=== PATIENT | male | born 1965 | race Caucasian/White ===

== ENCOUNTER 2017-12-02 12:23 | Inpatient (IN) | payer BC ==
--- NOTE | 2017-12-02 12:29 | PDOC ---
History of Present Illness - General Chief Complaint: Nausea Stated Complaint: N/V/D, ABD PAIN, CHRONIC PAIN Time Seen by Provider: 12/02/17 12:29 History Source: Patient Exam Limitations: No Limitations - History of Present Illness Travel History: No Initial Comments: 12/02/17 13:06 Mr Ballard is a 52-year-old male with no significant past medical history who presents emergency department with a complaint of abdominal pain, vomiting, diarrhea. Patient states he has been ill for the past 2 weeks. Initially he noted vomiting and diarrhea. Diarrhea was nonbloody, nonmucoid, he estimates one episode daily. He also noted vomiting which was nonbloody, nonbilious, and has since resolved. He reports that 4 days into the vomiting and diarrhea he began to have abdominal pain. Pain is located on the right side the abdomen, described as 8D and sharp. No radiation. Pain is always present but worsens intermittently. It improves with changes in position. No associated fevers or chills. No ill contacts. No international travel. He's unsure if he's had undercooked meat or shellfish. No prior episodes like this. Currently he notes that he is dry heaving. PMH: Denies PSH: Surgical procedure as a 3-year-old child to remove a lump in intestine", reportedly not malignant. Left rotator cuff repair Meds: Ativan 1 mg 3 times a day, last use this morning Nifedipine Lexapro Vicodin 5 mg 3-4 times a day when necessary pain. ALL: NKDA Social: Denies IV drug use, currently smokes 1 pack per day, sober 2 years FH: Noncontributory GENERAL/CONSTITUTIONAL: No: fever, chills, weakness, loss of appetite. HEAD, EYES, EARS, NOSE AND THROAT: No: change in vision, ear pain, discharge, sore throat, throat swelling. CARDIOVASCULAR: No: chest pain, lightheadedness, palpitations, syncope RESPIRATORY: No: cough, shortness of breath, wheezing, hemoptysis, stridor. GASTROINTESTINAL: Yes: nausea, vomiting, diarrhea, abdominal pain GENITOURINARY: No: dysuria, hematuria, frequency, urgency, flank pain. MUSCULOSKELETAL: No: back pain, neck pain, joint pain, muscle swelling or pain SKIN AND BREASTS: No: lesions, pallor, rash or easy bruising. NEUROLOGIC: No: headache, vertigo, paresthesias, weakness ENDOCRINE: No: unexplained weight gain or loss HEMATOLOGIC/LYMPHATIC: No: anemia, easy bleeding, swelling nodes. GENERAL: The patient is in no acute distress. HEAD: Normal with no signs of trauma. EYES: PERRLA, EOMI, sclera anicteric, conjunctiva clear. ENT: Ears normal, nares patent, oropharynx clear without exudates. Moist mucous membranes. NECK: Normal range of motion, supple without lymphadenopathy, JVD, or masses. LUNGS: Breath sounds equal, clear to auscultation bilaterally. No wheezes, and no crackles. HEART:Regular rate and rhythm, normal S1 and S2 without murmur, rub or gallop. ABDOMEN: Soft, RLQ tenderness to palpation, no involuntary guarding, no rebound EXTREMITIES: Normal range of motion, no edema. NEUROLOGICAL: Cranial nerves II through XII grossly intact. Normal speech. No focal neurological deficits. MUSCULOSKELETAL: Back non-tender to palpation, no CVA tenderness SKIN: Warm, Dry, normal turgor, no rashes or lesions noted. Past History - Past Medical History Allergies/Adverse Reactions: Allergies Allergy/AdvReac Type Severity Reaction Status Date / Time No Known Allergies Allergy Verified 12/02/17 12:32 Home Medications: Ambulatory Orders Escitalopram Oxalate [Lexapro -] 50 mg PO DAILY 12/02/17 Hydrocodone/Acetaminophen [Vicodin 5-300 mg Tablet] 1 each PO QID PRN 12/02/17 LORazepam [Ativan] 1 mg PO TID 12/02/17 Nifedipine [Nifedipine ER] 60 mg PO DAILY 12/02/17 ED Treatment Course - LABORATORY CBC & Chemistry Diagram: 12/02/17 13:15 12/02/17 13:15 Medical Decision Making - Medical Decision Making 12/02/17 13:14 52-year-old male presents emergency department with a complaint of severe abdominal pain, persistent nausea, vomiting. Differential diagnosis includes but is not limited to: Gastritis, gastritis, colitis, appendicitis with abscess, small bowel junction. Also possible is opioid withdrawal. Will do: Labs CT UA Morphine, Zofran, fluids Re Assess 12/02/17 14:22 Laboratory Tests 12/02/17 12/02/17 13:15 13:15 WBC 8.4 Hgb 9.0 L Hct 27.5 L Plt Count 601 H Urine Ketones Trace Urine Nitrite Positive Urine Bilirubin 1+ H Ur Leukocyte Esterase Negative 12/02/17 14:29 Laboratory Tests 12/02/17 13:15 Sodium 133 L Potassium 3.8 Chloride 98 Carbon Dioxide 28 BUN 10 Creatinine 0.7 Random Glucose 122 H Total Bilirubin 0.5 AST 19 ALT 13 Albumin 2.7 L Total Amylase 22 L 12/02/17 18:28 CT with extensive inflammation around gallbladder, duodenum, colon. Patient hemodynamically stable currently in emergency department Case reviewed with Dr Gavin Requesting pt transfer Agrees with Wally NUNO pending Case reviewed with Dr. Clifton Will admit to hospitalist at [facility] Clinical impression: CHolecystitis, initial presentation *DC/Admit/Observation/Transfer Diagnosis at time of Disposition: Cholecystitis, Duodenitis - Discharge Dispostion Condition at time of disposition: Stable Decision to Admit order: Yes - Referrals - Patient Instructions - Post Discharge Activity
[2017-12-02] MEDS ORDERED: ONDANSETRON 4 MG/2 ML VIAL IVPUSH ONE ×3 (12:38→18:44)
[2017-12-02] MEDS ORDERED: SODIUM CHLORIDE 1,000 ML IV STA (12:38)
[2017-12-02] MEDS ORDERED: morphine CARPU-JECT 4 MG/1 ML DISP.SYRIN IVPUSH ONE (12:38)
[2017-12-02] MEDS ORDERED: morphine SULFATE 4 MG/ML VIAL ONE (13:09)
[2017-12-02] MEDS ORDERED: ONDANSETRON 4 MG/2 ML VIAL ONE ×3 (13:10→18:46)
[2017-12-02 13:55] LABS: BASO % 0.4 % (0-2.0); EOS % 0.8 % (0-4.5); HEMATOCRIT 27.5 % (35.4-49); LYMPH % 13.8 % (8-40); MCH 30.5 pg (25.7-33.7); MCHC 32.8 g/dl (32.0-35.9); MEAN CELL VOLUME 93.1 fl (80-96); MEAN PLT VOLUME 7.1 fl (7.5-11.1); MONO % 9.1 % (3.8-10.2); NEUT % 75.9 % (42.8-82.8); PLATELET COUNT 601 K/MM3 (134-434); RBC 2.96 M/mm3 (4.00-5.60); RDW 14.4 % (11.9-15.9); WHITE BLOOD COUNT 8.4 K/mm3 (4.0-10.8)
[2017-12-02 13:58] LABS: URINE APPEARANCE Clear; URINE BILIRUBIN 1+ (NEGATIVE); URINE GLUCOSE (UA) Trace (NEGATIVE); URINE KETONE Trace (NEGATIVE); URINE LEUK ESTERASE Negative (NEGATIVE); URINE NITRITE Positive (NEGATIVE)
[2017-12-02 14:09] LABS: URINE COLOR YELLOW; URINE PROTEIN 1+ (NEGATIVE)
[2017-12-02 14:22] LABS: ALBUMIN 2.7 g/dl (3.5-5.0); ALK PHOS 59 U/L (32-92); AMYLASE 22 U/L (25-125); ANION GAP 7 (8-16); BILIRUBIN,TOTAL 0.5 mg/dl (0.2-1.0); BLOOD UREA NITROGEN 10 mg/dl (7-18); CALCIUM 8.4 mg/dl (8.4-10.2); CHLORIDE 98 mmol/L (98-107); CO2 28 mmol/L (22-28); CREATININE 0.7 mg/dl (0.6-1.3); GLUCOSE,RANDOM 122 mg/dl (74-106); POTASSIUM 3.8 mmol/L (3.5-5.1); SGOT/AST 19 U/L (10-42); SGPT/ALT 13 U/L (10-40); SODIUM 133 mmol/L (136-145); TOT PROT 6.1 g/dl (6.4-8.3)
[2017-12-02 14:32] LABS: EPI CELLS 0-3 /HPF; URINE BACTERIA FEW /hpf (NEGATIVE); URINE MUCUS 2+; URINE RBC 0-3 /hpf (0-3)
[2017-12-02 14:47] LABS: PLATELET ESTIMATE INCREASED
[2017-12-02] MEDS ORDERED: HYDROmorphone HCL CARPU-JECT 2 MG/1 ML DISP.SYRIN ONE ×2 (15:05→18:45)
[2017-12-02] MEDS ORDERED: HYDROmorphone HCL CARPU-JECT 1 MG/1 ML DISP.SYRIN IVPB ONE ×2 (15:06→18:44)
[2017-12-02 16:08] LABS: LIPASE 87 U/L (73-393)
[2017-12-02] MEDS ORDERED: PIPERACILLIN/TAZOB 4.5 GM 4.5 GM in DEXTROSE 5%-WATER 100 ML IVPB ONE (17:25)
[2017-12-02] MEDS ORDERED: PIPERACILLIN/TAZOBACTAM 4.5 GM VIAL IVPB ONE (17:29)
[2017-12-02] MEDS: LACTATED RINGERS SOLUTION 1,000 ML/1,000 ML INFUS.BAG IV SCH ×2 (18:15→22:11)
[2017-12-02 18:53] LABS: INR 1.03 (0.82-1.09); PROTHROMBIN TIME (PATIENT) 11.5 SEC (10.2-13.0)
--- NOTE | 2017-12-02 19:57 | PN ---
Teaching Attending Note Name of Resident: Adin Vasquez ATTENDING PHYSICIAN STATEMENT I saw and evaluated the patient. I reviewed the resident's note and discussed the case with the resident. I agree with the resident's findings and plan as documented. SUBJECTIVE: Patient is a 52 year old man with medical history of tobacco use, hypertension, ?depression who was transferred to [place] from [facility] where he presented with a complaint of abdominal pain, vomiting, and diarrhea for 2 weeks. Diarrhea was about once daily and was dark, nonbloody and nonmucoid. Also vomitus was nonbloody and nonbilious. Pain is located on the right side the abdomen, sharp and non radiating. He denies fevers, chills, ill contacts, international travel or eating undercooked meat or shellfish. CT scan as well as Ultrasound at [facility] showed acalculous cholecystitis with mild dilatation of common bile duct on sonogram as well as mild duodenitis and colitis on CT scan. OBJECTIVE: Vital Signs Period Temp Pulse Resp BP Sys/Linn Pulse Ox Last 24 Hr 98.5 F-98.9 F 76-110 16-18 98-127/66-92 95-98 HEENT: No Jaundice, eye redness or discharge, PERRLA, EOMI. Normocephalic, atraumatic. External ears are normal and hearing is grossly intact. No nasal discharge. Neck: Supple, nontender. No palpable adenopathy or thyromegaly. No JVD Chest: Good effort. Clear to auscultation and percussion. Heart: Regular. No S3, rub or murmur Abdomen: Not distended, soft, nontender and no HSM. No rebound or guarding. Normoactive bowel sounds. Ext: Peripheral pulses intact. No leg edema. Skin: Warm and dry. No petechiae, rash or ecchymosis. Neuro: Alert. Oriented x3. CN 2-12 grossly intact. Sensation grossly intact in all four extremities and DTR are symmetric. Current Medications Generic Name Dose Route Start Last Admin Trade Name Freq PRN Reason Stop Dose Admin Lactated Ringer's 1,000 ml in 1,000 mls @ 125 mls/hr 12/02/17 18:00 12/02/17 18:15 Lactated Ringers Solution IV 125 mls/hr ASDIR ALEXIA Administration Home Medications Medication Instructions Recorded Escitalopram Oxalate [Lexapro -] 50 mg PO DAILY 12/02/17 Hydrocodone/Acetaminophen [Vicodin 1 each PO QID PRN 12/02/17 5-300 mg Tablet] LORazepam [Ativan] 1 mg PO TID 12/02/17 Nifedipine [Nifedipine ER] 60 mg PO DAILY 12/02/17 Abnormal Lab Results 12/02/17 12/02/17 12/02/17 13:15 13:15 13:15 RBC 2.96 L Hgb 9.0 L Hct 27.5 L Plt Count 601 H MPV 7.1 L Sodium 133 L Anion Gap 7 L Random Glucose 122 H Total Protein 6.1 L Albumin 2.7 L Total Amylase 22 L Urine Protein 1+ H Urine Bilirubin 1+ H ASSESSMENT AND PLAN: 1. Acute acalculous cholecystitis - Findings confirmed by CT scan. Of note is associated mild duodenitis and acute colitis. Will keep him NPO, continue IV Zosyn 3.375 gm IV q 8 hours in view of the associated colitis, IV LR at 125 ml/ hr and consult Dr. Roach for ID as per the surgeon. If he has any more diarrhea , will send stool for analyses including C. Diff toxin. 2. Thrombocytosis - Most likely reactive due to an active infection, or may signal iron deficiency. Will monitor closely and investigate it if it fails to resolve with treatment of cholecystitis. 3. Anemia - Concerning for GI blood loss of unclear cause. Will do basic anemia work up including serial stool guaiacs, reticulocyte count and iron studies. Would consult GI for possible colonoscopy when he is stable. 4. Opioid dependence - Will verify his dose on iStop and continue PRN. Monitor for withdrawal. 5. Hypoalbuminemia - Possibly due to combined effects of malnutrition and inflammation associated with comorbid conditions. Will ensure adequate dietary protein intake and also consult humanities and languages professor. 6. Tobacco Use We will provide patient all the necessary assistance to facilitate smoking cessation and prescribe Nicotine patch. 7. DVT prophylaxis - Heparin 5000u sq tid. 8. Advance directives - Full code
--- NOTE | 2017-12-02 20:12 | CON.ID ---
Consult - Alcohol/Substance Use Hx Alcohol Use: Yes - Smoking History Smoking history: Current every day smoker Have you smoked in the past 12 months: Yes Aproximately how many cigarettes per day: 20 Home Medications - Allergies Allergies/Adverse Reactions: Allergies Allergy/AdvReac Type Severity Reaction Status Date / Time No Known Allergies Allergy Verified 12/02/17 12:32 - Home Medications Home Medications: Ambulatory Orders Escitalopram Oxalate [Lexapro -] 50 mg PO DAILY 12/02/17 Hydrocodone/Acetaminophen [Vicodin 5-300 mg Tablet] 1 each PO QID PRN 12/02/17 LORazepam [Ativan] 1 mg PO TID 12/02/17 Nifedipine [Nifedipine ER] 60 mg PO DAILY 12/02/17 Physical Exam Vital Signs: Vital Signs Temperature 98.5 F 12/02/17 19:51 Pulse Rate 78 12/02/17 19:51 Respiratory Rate 17 12/02/17 19:51 Blood Pressure 112/70 12/02/17 19:51 O2 Sat by Pulse Oximetry (%) 95 12/02/17 18:15 Labs: CBC, BMP 12/02/17 13:15 12/02/17 13:15
[2017-12-02] MEDS ORDERED: morphine CARPU-JECT 2 MG/1 ML DISP.SYRIN IVPUSH PRN (21:04)
[2017-12-02] MEDS: MORPHINE SULFATE 2 MG/ML VIAL IVPUSH PRN (22:22)
[2017-12-02] MEDS: ONDANSETRON 4 MG/2 ML VIAL IVPUSH PRN (23:20)
--- NOTE | 2017-12-02 23:26 | CONSULT ---
Consult Consult Specialty:: General Surgery Referred by:: Rebekah Sorto Reason for Consultation:: acute acalculous cholecystitis with associated intestinal inflammation - History of Present Illness Chief Complaint: abdominal pain, n/v, anorexia History of Present Illness: 52yo M smoker and former drinker with HTN, anxiety/depression, shoulder and knee problems, presented to [facility] with 2 wks of not feeling well, which began with "sludge" diarrhea and N/V attributed to "something going around." He did not initially have abdominal pain, but did lose his appetite, and tolerated mainly Gatorade and liquids but was still able to eat lightly as the week went on. Then this last week, the diarrhea resolved into formed stools , and slowly he was able to eat a little, but epigastric and RUQ pain began about 6 days ago, and have continued to get worse. He thought at first his retching was the source of RUQ pain (?cracked rib). Urine was dark for a while at first, but has been network systems operator throughout the course of his illness. There were a couple days he felt feverish last week, but was also out in the sun a lot and could have been dehydrated. He came to the ER, where his wbc is 10, LFTs and lipase are normal, he was afebrile, and CT showed marked inflammatory changes around the gallbladder, duodenum and nearby colon, with edema/fluid and thickened osuna. US confirmed likely acalculous cholecystitis, with no apparent stones, thick-walled gallbladder and pericholecystic fluid. Surgery was asked to evaluate, and the patient was requested to be transferred to [facility] [place] given the severity of inflammation and likelihood of needing surgery. Pt is seen and examined in bed on the med/surg floor, with the hospitalist residents and med student. He has gotten IVF and Zosyn, pain medicines and Zofran. He states this is the first night he felt like he could have eaten, but has continued to have pain in the epigastric and RUQ areas, along with some nausea. He denies ever having colonoscopy. He will accept a nicotine patch as a heavy smoker. - History Source History Provided By: Patient Limitations to Obtaining History: No Limitations - Past Medical History Cardio/Vascular: Yes: HTN Pulmonary: Yes: Other ("wheezing" (from smoking)) Psych: Yes: Anxiety, Depression Musculoskeletal: Yes: Osteoarthritis (knee), Other (chronic shoulder problems, h /o ankle injuries) - Past Surgical History Past Surgical History: No: Colonoscopy (never) Additional Surgical History: RLQ surgery as 3yo for "blockage" - unclear if had appendectomy, was benign; L rotator cuff repair, (needs right done) - Alcohol/Substance Use Hx Alcohol Use: Yes (heavy drinker for 8 yrs, quit 2 yrs ago) History of Substance Use: reports: Cocaine (in the 1980s, snorted - not since), Prescription (vicodin 5/325 at least daily to tid for shoulder/knee pain ( mostly at night)) - Smoking History Smoking history: Current every day smoker Have you smoked in the past 12 months: Yes Aproximately how many cigarettes per day: 20 (1ppd x 35 yrs, less in last 2 wks) - Social History ADL: Independent Home Medications - Allergies Allergies/Adverse Reactions: Allergies Allergy/AdvReac Type Severity Reaction Status Date / Time No Known Allergies Allergy Verified 12/02/17 12:32 - Home Medications Home Medications: Ambulatory Orders Escitalopram Oxalate [Lexapro -] 50 mg PO DAILY 12/02/17 Hydrocodone/Acetaminophen [Vicodin 5-300 mg Tablet] 1 each PO QID PRN 12/02/17 LORazepam [Ativan] 1 mg PO TID 12/02/17 Nifedipine [Nifedipine ER] 60 mg PO DAILY 12/02/17 Home Medications (free text): also uses trazodone for sleep Family Disease History - Family Disease History Family Disease History: Other: Father ( of EtOH cirrhosis), Brother ( of EtOH cirrhosis) Review of Systems - Review of Systems Constitutional: reports: Fever (for couple days few days ago), Loss of Appetite (coming back recently). denies: Chills Eyes: denies: Blurred Vision, Recent Change in Vision HENT: denies: Difficult Swallowing, Nasal Congestion, Throat Pain Neck: denies: Swollen Glands, Tenderness Cardiovascular: denies: Chest Pain, Palpitations Respiratory: reports: Wheezing ("for a long time"). denies: Cough, SOB Gastrointestinal: reports: Abdominal Pain (last 6 days with hpi), Diarrhea ( initially 2 wks ago, resolved to formed stool), Nausea, Vomiting Genitourinary: denies: Burning, Dysuria Musculoskeletal: reports: Joint Pain (right shoulder and knee). denies: Back Pain Integumentary: denies: Change in Color, Rash Psychiatric: reports: Altered Sleep Pattern (uses trazodone for sleep), Anxiety , Depression Physical Exam Vital Signs: Vital Signs Temperature 97.7 F 12/02/17 21:10 Pulse Rate 79 12/02/17 21:10 Respiratory Rate 18 12/02/17 21:10 Blood Pressure 119/71 12/02/17 21:10 O2 Sat by Pulse Oximetry (%) 96 12/02/17 21:10 Constitutional: Yes: Well Nourished, No Distress, Calm Eyes: Yes: Conjunctiva Clear, EOM Intact. No: Sclera Icterus HENT: Yes: Atraumatic, Normocephalic Neck: Yes: Supple, Trachea Midline Cardiovascular: Yes: Regular Rate and Rhythm. No: Murmur Respiratory: Yes: Regular, Wheezes (insp/exp bilaterally - clears some with coughing, but cough is with wheezing). No: SOB Gastrointestinal: Yes: Normal Bowel Sounds, Soft, Hernia (small reducible umbilical), Tenderness (RUQ, less epigastric, less RLQ, no rebound or guarding) , Other (well-healed short RLQ scar). No: Distention ...Rectal Exam: Yes: Deferred Renal/: Yes: CVA Tenderness - Right (mild). No: CVA Tenderness - Left Musculoskeletal: Yes: Joint Stiffness (R shoulder). No: Joint Swelling Extremities: No: Cool, Cyanosis Edema: No Peripheral Pulses WNL: Yes Integumentary: Yes: Tattoos. No: Jaundice, Rash Neurological: Yes: Alert, Oriented Psychiatric: Yes: Alert, Oriented Labs: CBC, BMP 12/02/17 13:15 12/02/17 13:15 CMP Sodium 133 mmol/L (136-145) L 12/02/17 13:15 Potassium 3.8 mmol/L (3.5-5.1) 12/02/17 13:15 Chloride 98 mmol/L (98-107) 12/02/17 13:15 Carbon Dioxide 28 mmol/L (22-28) 12/02/17 13:15 Anion Gap 7 (8-16) L 12/02/17 13:15 BUN 10 mg/dl (7-18) 12/02/17 13:15 Creatinine 0.7 mg/dl (0.6-1.3) 12/02/17 13:15 Creat Clearance w eGFR > 60 (>60) 12/02/17 13:15 Random Glucose 122 mg/dl (74-106) H 12/02/17 13:15 Lactic Acid 0.9 mmol/L (0.0-2.0) 12/02/17 18:00 Calcium 8.4 mg/dl (8.4-10.2) 12/02/17 13:15 Total Bilirubin 0.5 mg/dl (0.2-1.0) 12/02/17 13:15 AST 19 U/L (10-42) 12/02/17 13:15 ALT 13 U/L (10-40) 12/02/17 13:15 Alkaline Phosphatase 59 U/L (32-92) 12/02/17 13:15 Total Protein 6.1 g/dl (6.4-8.3) L 12/02/17 13:15 Albumin 2.7 g/dl (3.5-5.0) L 12/02/17 13:15 Total Amylase 22 U/L (25-125) L 12/02/17 13:15 Lipase 87 U/L (73-393) 12/02/17 13:15 INR, PTT INR 1.03 (0.82-1.09) 12/02/17 18:00 Urine Test Results Urine Color Yellow 12/02/17 13:15 Urine Appearance Clear 12/02/17 13:15 Urine pH 6.0 (4.5-8) 12/02/17 13:15 Ur Specific [place] 1.015 (1.005-1.025) 12/02/17 13:15 Urine Protein 1+ (NEGATIVE) H 12/02/17 13:15 Urine Glucose (UA) Trace (NEGATIVE) 12/02/17 13:15 Urine Ketones Trace (NEGATIVE) 12/02/17 13:15 Urine Blood Negative (NEGATIVE) 12/02/17 13:15 Urine Nitrite Positive (NEGATIVE) 12/02/17 13:15 Urine Bilirubin 1+ (NEGATIVE) H 12/02/17 13:15 Ur Leukocyte Esterase Negative (NEGATIVE) 12/02/17 13:15 Urine RBC 0-3 /hpf (0-3) 12/02/17 13:15 Urine WBC 3-5 (0-2) 12/02/17 13:15 Ur Epithelial Cells 0-3 /HPF 12/02/17 13:15 Urine Bacteria Few /hpf (NEGATIVE) 12/02/17 13:15 Urine Mucus 2+ 12/02/17 13:15 Imaging - Results Cat Scan: Report Reviewed, Image Reviewed (images personally reviewed - gallbladder with significant wall thickening, surrounding fluid, adjacent inflammation of duodenum and colon, appendix not visualized, possible SB/Meckel' s? diverticulum noted in RLQ, no intestinal obstruction, no free air) Ultrasound: Report Reviewed, Image Reviewed (no apparent gallstones, thickened gallbladder wall with pericholecystic fluid, cbd mildly enlarged at 7.5mm) EKG: Report Reviewed (no QT prolongation) Problem List - Problems (1) Acute acalculous cholecystitis Assessment/Plan: transferred from [facility] to [facility] to hospitalist service NPO/IVF - essential po meds ok to continue/use pain meds prn - would use IV Tylenol and prn hydrocodone first line, then IV morphine prn trend labs GI/DVT prophylaxis agree with antibiotics, Zosyn, ID to continue discussed with patient laparoscopic possible open cholecystectomy with diagnostic laparoscopy component he prefers to discuss R/B/A in detail tomorrow anticipate pt will need cholecystectomy this admission, but will follow up labs and exam in am seen, examined and discussed with hospitalist team at bedside - Drs. So and colleagues Code(s): K81.0 - ACUTE CHOLECYSTITIS (2) Acute duodenitis Assessment/Plan: secondary to biliary inflammation? Code(s): K29.80 - DUODENITIS WITHOUT BLEEDING (3) RUQ pain Code(s): R10.11 - RIGHT UPPER QUADRANT PAIN (4) Epigastric pain Code(s): R10.13 - EPIGASTRIC PAIN (5) Nausea and vomiting Assessment/Plan: zofran prn NPO/IVF Code(s): R11.2 - NAUSEA WITH VOMITING, UNSPECIFIED Qualifiers: Vomiting type: unspecified Vomiting Intractability: non-intractable Qualified Code(s): R11.2 - Nausea with vomiting, unspecified (6) Diarrhea Assessment/Plan: resolved from last week Code(s): R19.7 - DIARRHEA, UNSPECIFIED Qualifiers: Diarrhea type: unspecified type Qualified Code(s): R19.7 - Diarrhea, unspecified
--- NOTE | 2017-12-02 23:53 | HP ---
CHIEF COMPLAINT: abdominal pain, vomiting, diarrhea PCP: HISTORY OF PRESENT ILLNESS: 52 y/o M w/ PMH of HTN, anxiety, and depression, p/w abdominal pain, vomiting, diarrhea. Patient states he has been ill for the past 2 weeks. Initially he noted nausea, vomiting, and diarrhea that he describes as "black sludge", he estimates one episode daily. He reports not taking anything for it and had decreased appetite, tolerated Gatorade and mild food. He also noted vomiting which was nonbloody, nonbilious, and has since resolved. He reports that 4 days into the vomiting and diarrhea he began to have abdominal pain along with dry heaving. Pain began in epigastrium and eventually migrated to the upper right side the abdomen, near the ribs, described as 9/10 and sharp. No radiation. Pain is always present but worsens intermittently. It improves with changes in position. No associated fevers, chills, SOB, CP, palpitations, dysuria, ill contacts, international travel. He's unsure if he's had undercooked meat or shellfish. No prior episodes like this. ER course was notable for: (1)Zosyn 4.5mg q8h, morphine 2mg IVP q4h PRN, Dilauded 1mg IVP (2) (3) Recent Travel: none PAST MEDICAL HISTORY: HTN anxiety depression b/l rotator cuff tear R torn meniscus PAST SURGICAL HISTORY: 49 yr old surgical scar in RLQ, pt said his mother told him it was from a "blockage" Social History: Smokinpack/day for 35yrs Alcohol:stopped 2 years ago after 8 years of heavy drinking Drugs: cocaine in the 80's. denies current or recent use Family History: dad had cirrhosis Allergies No Known Allergies Allergy (Verified 12/02/17 12:32) HOME MEDICATIONS: Home Medications Medication Instructions Recorded Escitalopram Oxalate [Lexapro -] 50 mg PO DAILY 12/02/17 Hydrocodone/Acetaminophen [Vicodin 1 each PO QID PRN 12/02/17 5-300 mg Tablet] LORazepam [Ativan] 1 mg PO TID 12/02/17 Nifedipine [Nifedipine ER] 60 mg PO DAILY 12/02/17 Trazadone 100mg qhs for sleep REVIEW OF SYSTEMS CONSTITUTIONAL: + loss of appetite Absent: fever, chills, diaphoresis, generalized weakness, malaise, weight change HEENT: Absent: rhinorrhea, nasal congestion, throat pain, throat swelling, difficulty swallowing, mouth swelling, ear pain, eye pain, visual changes CARDIOVASCULAR: Absent: chest pain, syncope, palpitations, irregular heart rate, lightheadedness , peripheral edema RESPIRATORY: +wheezing Absent: cough, shortness of breath, dyspnea with exertion, orthopnea, stridor, hemoptysis GASTROINTESTINAL: +abdominal pain, n/v/d, melena Absent:abdominal distension, constipation, hematochezia GENITOURINARY: Absent: dysuria, frequency, urgency, hesitancy, hematuria, flank pain, genital pain MUSCULOSKELETAL: Absent: myalgia, arthralgia, joint swelling, back pain, neck pain SKIN: Absent: rash, itching, pallor HEMATOLOGIC/IMMUNOLOGIC: Absent: easy bleeding, easy bruising, lymphadenopathy, frequent infections ENDOCRINE: Absent: unexplained weight gain, unexplained weight loss, heat intolerance, cold intolerance NEUROLOGIC: Absent: headache, focal weakness or paresthesias, dizziness, unsteady gait, seizure, mental status changes, bladder or bowel incontinence PSYCHIATRIC: Absent:anxiety, depression, suicidal or homicidal ideation, hallucinations. PHYSICAL EXAMINATION Vital Signs - 24 hr 12/02/17 12/02/17 12/02/17 12:27 15:00 18:15 Temperature 98.9 F 98.9 F Pulse Rate 110 H Pulse Rate [ 90 76 Right Radial] Respiratory 18 17 16 Rate Blood Pressure 127/92 Blood Pressure 102/71 98/66 [Left Arm] O2 Sat by Pulse 98 96 95 Oximetry (%) 12/02/17 12/02/17 12/02/17 19:23 19:51 20:30 Temperature 98.5 F 98.5 F 97.7 F Pulse Rate 78 78 79 Pulse Rate [ Right Radial] Respiratory 17 17 18 Rate Blood Pressure 112/70 112/70 119/71 Blood Pressure [Left Arm] O2 Sat by Pulse Oximetry (%) 12/02/17 21:10 Temperature 97.7 F Pulse Rate 79 Pulse Rate [ Right Radial] Respiratory 18 Rate Blood Pressure 119/71 Blood Pressure [Left Arm] O2 Sat by Pulse 96 Oximetry (%) GENERAL: Awake, alert, and fully oriented, in mild distress. HEAD: Normal with no signs of trauma. EYES: sclera anicteric, conjunctiva clear. No lid lag. LUNGS: Breath sounds equal, clear to auscultation bilaterally. mild wheezes, but no crackles. No accessory muscle use. HEART: Regular rate and rhythm, normal S1 and S2 without murmur, rub or gallop. ABDOMEN: TTP RUQ Soft, not distended, normoactive bowel sounds, no rebound, no masses. No hepatomegaly MUSCULOSKELETAL: Normal range of motion at all joints. No bony deformities or tenderness. No CVA tenderness. UPPER EXTREMITIES: 2+ pulses, warm, well-perfused. No cyanosis. No clubbing. No peripheral edema. LOWER EXTREMITIES: 2+ pulses, warm, well-perfused. No calf tenderness. No peripheral edema. NEUROLOGICAL: Cranial nerves II-XII intact. Normal speech. PSYCHIATRIC: Cooperative. Good eye contact. Appropriate mood and affect. SKIN: Warm, dry, normal turgor, no rashes or lesions noted, normal capillary refill. Laboratory Results - last 24 hr 12/02/17 12/02/17 12/02/17 13:15 13:15 13:15 WBC 8.4 RBC 2.96 L Hgb 9.0 L Hct 27.5 L MCV 93.1 MCH 30.5 MCHC 32.8 RDW 14.4 Plt Count 601 H MPV 7.1 L Absolute Neuts (auto) 6.3 Neutrophils % 75.9 Lymphocytes % 13.8 Monocytes % 9.1 Eosinophils % 0.8 Basophils % 0.4 Platelet Estimate Increased Platelet Comment Few large platelets PT with INR INR Sodium 133 L Potassium 3.8 Chloride 98 Carbon Dioxide 28 Anion Gap 7 L BUN 10 Creatinine 0.7 Creat Clearance w eGFR > 60 Random Glucose 122 H Lactic Acid Calcium 8.4 Total Bilirubin 0.5 AST 19 ALT 13 Alkaline Phosphatase 59 Total Protein 6.1 L Albumin 2.7 L Total Amylase 22 L Lipase 87 Urine Color Yellow Urine Appearance Clear Urine pH 6.0 Ur Specific [place] 1.015 Urine Protein 1+ H Urine Glucose (UA) Trace Urine Ketones Trace Urine Blood Negative Urine Nitrite Positive Urine Bilirubin 1+ H Urine Urobilinogen 1.0 Ur Leukocyte Esterase Negative Urine RBC 0-3 Urine WBC 3-5 Ur Epithelial Cells 0-3 Urine Bacteria Few Urine Mucus 2+ Blood Type Antibody Screen 12/02/17 12/02/17 12/02/17 18:00 18:00 18:00 WBC RBC Hgb Hct MCV MCH MCHC RDW Plt Count MPV Absolute Neuts (auto) Neutrophils % Lymphocytes % Monocytes % Eosinophils % Basophils % Platelet Estimate Platelet Comment PT with INR 11.5 INR 1.03 Sodium Potassium Chloride Carbon Dioxide Anion Gap BUN Creatinine Creat Clearance w eGFR Random Glucose Lactic Acid 0.9 Calcium Total Bilirubin AST ALT Alkaline Phosphatase Total Protein Albumin Total Amylase Lipase Urine Color Urine Appearance Urine pH Ur Specific [place] Urine Protein Urine Glucose (UA) Urine Ketones Urine Blood Urine Nitrite Urine Bilirubin Urine Urobilinogen Ur Leukocyte Esterase Urine RBC Urine WBC Ur Epithelial Cells Urine Bacteria Urine Mucus Blood Type O POSITIVE Antibody Screen Negative 12/02/17 18:10 WBC RBC Hgb Hct MCV MCH MCHC RDW Plt Count MPV Absolute Neuts (auto) Neutrophils % Lymphocytes % Monocytes % Eosinophils % Basophils % Platelet Estimate Platelet Comment PT with INR INR Sodium Potassium Chloride Carbon Dioxide Anion Gap BUN Creatinine Creat Clearance w eGFR Random Glucose Lactic Acid Calcium Total Bilirubin AST ALT Alkaline Phosphatase Total Protein Albumin Total Amylase Lipase Urine Color Urine Appearance Urine pH Ur Specific [place] Urine Protein Urine Glucose (UA) Urine Ketones Urine Blood Urine Nitrite Urine Bilirubin Urine Urobilinogen Ur Leukocyte Esterase Urine RBC Urine WBC Ur Epithelial Cells Urine Bacteria Urine Mucus Blood Type O POSITIVE Antibody Screen UA - positive nitrites. neg. leukocyte esterase. 1+protein 1+bilirubin Ucx - pending US - distended gallbladder w/ diffuse thickening and edema of wall suggestive of acute acalculous amber. mild dilation CBD 7.5mm in AP diam A/P CT - contracted gallbladder w/ likely acute amber, free pericholecystic fluid w/ inflammatory changes extending to descending portion of duodenum. Duodenitis and acute colitis cannot be excluded ASSESSMENT/PLAN: 52 y/o M w/ PMH of HTN, anxiety, and depression, p/w abdominal pain, vomiting, diarrhea 2/2 acute acalculous cholecystitis as seen on US and A/P CT imaging. #Acute acalculous cholecystitis - Findings confirmed by CT scan, associated mild duodenitis and acute colitis, may go for surgery tomorrow. -NPO except meds -Surgery consult -Zofran 4mg IV for nausea -albuterol neb tx q4h for preop -CBC w/ diff, CMP, PT/PTT, Amylase, lipase and CXR for anticipated preop -ID consulted, Zosyn 4.5mg q8h for associated colitis -If diarrhea persists, will send stool for analyses including C. Diff toxin. -pain control w/ IV tylenol 1g q6h pain score 4-10. if pain persists, 2mg morphine IVP q4h prn pain score 7-10 #Thrombocytosis - Most likely reactive due to an active infection. -monitor and investigate it if it fails to resolve with treatment of cholecystitis. #Anemia - Hbg of 9 in setting of dark stools, Concerning for GI blood loss of unclear cause or possible bone marrow suppression -w/u of stool guaiacs, reticulocyte count and iron studies -GI consult for possible colonoscopy #Hypoalbuminemia - Possibly due to combined effects of malnutrition and inflammation associated with comorbid conditions -ensure adequate dietary protein intake and also consult shoulder sawyer. #Tobacco -nicotine patch 7mg #HTN -c/w nifedipine home meds for HTN #anxiety and depression -c/w ativan home meds -c/w lexapro home meds #insomnia -Trazadone 100mg qhs for sleep #FEN ppx -LR IV for fluid resuscitation -repelte lytes if necessary -SQH 5000u #Dispo -admit to [facility] -may go for surgery in morning/afternoon -Full code Visit type - Emergency Visit Emergency Visit: Yes ED Registration Date: 12/02/17 Care time: The patient presented to the Emergency Department on the above date and was hospitalized for further evaluation of their emergent condition. - New Patient This patient is new to me today: Yes Date on this admission: 12/03/17 - Critical Care Critical Care patient: No Hospitalist Screening - Colonoscopy Questionnaire Colonoscopy Questionnaire: Colonoscopy Questionnaire - Patient: 50 - 75 years old and never had a screening colonoscopy: Yes History of colon or rectal polyps, or CA: Unknown History of IBD, Crohn's disease or UC: Unknown History of abdominal radiation therapy as a child: Unknown - Relative: 1 with colon or rectal CA, or polyps at age 60 or younger: Unknown Colon or rectal CA diagnosed at age 45 or younger: Unknown Multiple relatives with colon or rectal CA: Unknown - Outcome: Screening Result: Positive Screen
[2017-12-02] MEDS ORDERED: traZODone HCL 50 MG TABLET (FP) PO ONE (23:54)
[2017-12-02] MEDS ORDERED: ACETAMINOPHEN 1000 MG/100 ML VIAL (NON FORMULARY) IVPB PRN (23:56)
[2017-12-03] MEDS ORDERED: DEXTROSE 5%-WATER 100 ML IVPB ONE ×4 (00:02→23:36)
[2017-12-03] MEDS ORDERED: PIPERACILLIN/TAZOBACTAM 4.5 GM VIAL IVPB ONE ×4 (00:02→23:36)
[2017-12-03] MEDS: PIPERACILLIN/TAZOB 4.5 GM 4.5 GM in DEXTROSE 5%-WATER 100 ML IVPB SCH ×3 (01:30→18:14)
[2017-12-03] MEDS ORDERED: ALBUTEROL SO4 0.5 % INH SOLN 2.5 MG/0.5 ML VIAL.NEB. NEB PRN (02:11)
[2017-12-03] MEDS: HEPARIN NA (PORCINE) 5,000 UNITS/ML 1ML VIAL SQ SCH ×3 (05:22→21:09)
[2017-12-03] MEDS: MORPHINE SULFATE 2 MG/ML VIAL IVPUSH PRN ×4 (05:28→19:29)
[2017-12-03] MEDS: LACTATED RINGERS SOLUTION 1,000 ML/1,000 ML INFUS.BAG IV SCH ×2 (06:42→19:35)
[2017-12-03 07:32] LABS: BASO % 0.5 % (0-2.0); EOS % 2.1 % (0-4.5); HEMATOCRIT 24.6 % (35.4-49); HEMOGLOBIN 8.1 GM/dL (11.7-16.9); LYMPH % 14.1 % (8-40); MCH 31.2 pg (25.7-33.7); MCHC 33.2 g/dl (32.0-35.9); MEAN CELL VOLUME 94.1 fl (80-96); MEAN PLT VOLUME 7.2 fl (7.5-11.1); MONO % 10.2 % (3.8-10.2); NEUT % 73.1 % (42.8-82.8); PLATELET COUNT 457 K/MM3 (134-434); RBC 2.61 M/mm3 (4.00-5.60)
[2017-12-03 07:41] LABS: INR 1.05 (0.82-1.09); PROTHROMBIN TIME (PATIENT) 11.9 SEC (9.7-13.0)
[2017-12-03 07:52] LABS: ALBUMIN 2.2 g/dl (3.4-5.0); ANION GAP 9 (8-16); BLOOD UREA NITROGEN 4 mg/dL (7-18); CALCIUM 8.2 mg/dL (8.5-10.1); CHLORIDE 100 mmol/L (98-107); CO2 30 mmol/L (21-32); CREATININE 0.6 mg/dL (0.7-1.3); GLUCOSE,RANDOM 82 mg/dL (74-106); LIPASE 57 U/L (73-393); POTASSIUM 4.1 mmol/L (3.5-5.1); SGPT/ALT 17 U/L (12-78); SODIUM 139 mmol/L (136-145)
[2017-12-03 08:22] LABS: ALK PHOS 70 U/L (45-117); BILIRUBIN,TOTAL 0.4 mg/dL (0.2-1.0); SGOT/AST 17 U/L (15-37); TOT PROT 5.7 g/dl (6.4-8.2)
[2017-12-03] MEDS ORDERED: PT OWN MED DRAWER 7, Y5N ONE (09:13)
--- NOTE | 2017-12-03 09:16 | CON.ID ---
Consult Consult Specialty:: infectious diseases Referred by:: Reason for Consultation:: abd pain,suspicion for choleycystitis - History of Present Illness Chief Complaint: abd pain History of Present Illness: 52yo M smoker and drinker with pmhx of HTN, anxiety/depression, shoulder and knee problems, admitted with 2 wks of not feeling well, patient starting having abd pain and started loosing his appetitie after which he started taking liquids abd pain in the last week started becoming worse and the patient came to the hospital patient was worked up in the ER with u/s and then ct scan . US confirmed likely acalculous cholecystitis, with no apparent stones, thick-walled gallbladder and pericholecystic fluid. ct scan showed a different finding and surgical team discussed the radiological findings with radiologist and the thought process was that there was sealed duodenal perf with very thickened gall bladder patient is also being followed by surgery currently patient feels very nauseous but has not thrown up abd pain better but denies any fevers - History Source History Provided By: Patient Limitations to Obtaining History: No Limitations - Past Medical History Cardio/Vascular: Yes: HTN Pulmonary: Yes: Other ("wheezing" (from smoking)) Psych: Yes: Anxiety, Depression Musculoskeletal: Yes: Osteoarthritis (knee), Other (chronic shoulder problems, h /o ankle injuries) - Past Surgical History Past Surgical History: No: Colonoscopy (never) Additional Surgical History: RLQ surgery as 3yo for "blockage" - unclear if had appendectomy, was benign; L rotator cuff repair, (needs right done) - Alcohol/Substance Use Hx Alcohol Use: Yes (heavy drinker for 8 yrs, quit 2 yrs ago) History of Substance Use: reports: Cocaine (in the 1980s, snorted - not since), Prescription (vicodin 5/325 at least daily to tid for shoulder/knee pain ( mostly at night)) - Smoking History Smoking history: Current every day smoker Have you smoked in the past 12 months: Yes Aproximately how many cigarettes per day: 20 (1ppd x 35 yrs, less in last 2 wks) - Social History ADL: Independent Home Medications - Allergies Allergies/Adverse Reactions: Allergies Allergy/AdvReac Type Severity Reaction Status Date / Time No Known Allergies Allergy Verified 12/02/17 12:32 - Home Medications Home Medications: Ambulatory Orders Escitalopram Oxalate [Lexapro -] 50 mg PO DAILY 12/02/17 Hydrocodone/Acetaminophen [Vicodin 5-300 mg Tablet] 1 each PO QID PRN 12/02/17 LORazepam [Ativan] 1 mg PO TID 12/02/17 Nifedipine [Nifedipine ER] 60 mg PO DAILY 12/02/17 Family Disease History - Family Disease History Family Disease History: Other: Father ( of EtOH cirrhosis), Brother ( of EtOH cirrhosis) Review of Systems - Review of Systems Constitutional: reports: No Symptoms Eyes: reports: No Symptoms HENT: reports: No Symptoms Neck: reports: No Symptoms Cardiovascular: reports: No Symptoms Respiratory: reports: No Symptoms Gastrointestinal: reports: Abdominal Pain, Nausea Genitourinary: reports: No Symptoms Musculoskeletal: reports: No Symptoms Integumentary: reports: No Symptoms Neurological: reports: No Symptoms Endocrine: reports: No Symptoms Hematology/Lymphatic: reports: No Symptoms Psychiatric: reports: No Symptoms Physical Exam Vital Signs: Vital Signs Temperature 98.6 F 12/03/17 06:00 Pulse Rate 89 12/03/17 06:00 Respiratory Rate 18 12/03/17 06:00 Blood Pressure 107/68 12/03/17 06:00 O2 Sat by Pulse Oximetry (%) 96 12/02/17 21:10 Constitutional: Yes: Calm, Mild Distress, Thin Eyes: Yes: Conjunctiva Clear HENT: Yes: Atraumatic, Normocephalic Neck: Yes: Supple, Trachea Midline Cardiovascular: Yes: Regular Rate and Rhythm Respiratory: Yes: Regular, CTA Bilaterally Gastrointestinal: Yes: Soft, Hypoactive Bowel Sounds, Tenderness (rt sided of abd) Musculoskeletal: Yes: WNL Extremities: Yes: WNL Neurological: Yes: Alert, Oriented Psychiatric: Yes: Alert, Oriented Labs: CBC, BMP 12/03/17 05:50 12/03/17 05:50 Imaging - Results Chest X-ray: Report Reviewed, Image Reviewed Cat Scan: Report Reviewed, Image Reviewed Ultrasound: Report Reviewed, Image Reviewed Assessment/Plan after looking at the imaging and discussing the case the thought process is that there is a sealed deuodenal perf and gall bladder pathology is secondary Problem List - Problems (1) Duodenal ulcer with perforation but without obstruction Code(s): K26.5 - CHRONIC OR UNSPECIFIED DUODENAL ULCER WITH PERFORATION (2) Anxiety Code(s): F41.9 - ANXIETY DISORDER, UNSPECIFIED (3) Epigastric abdominal pain Code(s): R10.13 - EPIGASTRIC PAIN (4) HTN (hypertension) Code(s): I10 - ESSENTIAL (PRIMARY) HYPERTENSION (5) Tobacco dependence due to cigarettes Code(s): F17.210 - NICOTINE DEPENDENCE, CIGARETTES, UNCOMPLICATED plan will start patient on zosyn iv fluids as per surgery patient will need close follow and a plan will need to be made
[2017-12-03] MEDS: ONDANSETRON 4 MG/2 ML VIAL IVPUSH PRN ×2 (09:21→13:58)
[2017-12-03] MEDS ORDERED: NICOTINE 7 MG/24 HOURS TOPICAL PATCH TD SCH ×2 (10:00)
[2017-12-03] MEDS ORDERED: PANTOPRAZOLE SODIUM 160 MG in SODIUM CHLORIDE 290 ML IVPB SCH (11:15)
[2017-12-03] MEDS ORDERED: PANTOPRAZOLE SODIUM 40 MG VIAL IVPUSH ONE (11:15)
[2017-12-03] MEDS ORDERED: FLUCONAZOLE 200 MG/D5W 100 ML IVPB ONE (11:15)
--- NOTE | 2017-12-03 11:29 | PN ---
Progress Note, Physician History of Present Illness: Pt still with upper abdominal pain, nausea but no vomiting. Anxious. Seen at bedside with my partner Dr. Snow. No overnight events. Appears comfortable. - Current Medication List Current Medications: Active Medications Acetaminophen (Ofirmev Injection -) 1,000 mg IVPB Q6H PRN PRN Reason: pain level 4-10 Albuterol Sulfate (Ventolin 0.5% -) 1 amp NEB Q4H PRN PRN Reason: SHORT OF BREATH/WHEEZING Heparin Sodium (Porcine) (Heparin -) 5,000 unit SQ TID ALEXIA Last Admin: 12/03/17 05:22 Dose: 5,000 unit Lactated Ringer's (Lactated Ringers Solution) 1,000 ml in 1,000 mls @ 125 mls/ hr IV ASDIR ALEXIA Last Admin: 12/03/17 06:42 Dose: 125 mls/hr Piperacillin Sod/Tazobactam (Sod 4.5 gm/ Dextrose) 100 mls @ 200 mls/hr IVPB Q8H-IV ALEXIA; Protocol Last Admin: 12/03/17 09:21 Dose: 200 mls/hr Pantoprazole Sodium 160 mg/ (Sodium Chloride) 290 mls @ 14.5 mls/hr IVPB Q20H ALEXIA Fluconazole (Diflucan 200 Mg/D5w Premixed Ivpb -) 100 mls @ 100 mls/hr IVPB ONCE ONE Stop: 12/03/17 12:14 Fluconazole (Diflucan 100 Mg/D5w Premixed Ivpb -) 50 mls @ 50 mls/hr IVPB DAILY ALEXIA Morphine Sulfate (Morphine Sulfate) 2 mg IVPUSH Q4H PRN PRN Reason: PAIN LEVEL 7 - 10 Last Admin: 12/03/17 09:36 Dose: 2 mg Nicotine (Nicoderm Patch -) 7 mg TD DAILY ALEXIA Last Admin: 12/03/17 09:22 Dose: 7 mg Ondansetron HCl (Zofran Injection) 4 mg IVPUSH Q4H PRN PRN Reason: NAUSEA AND/OR VOMITING Last Admin: 12/03/17 09:21 Dose: 4 mg - Objective Vital Signs: Vital Signs Temperature 98.6 F 12/03/17 06:00 Pulse Rate 89 12/03/17 06:00 Respiratory Rate 18 12/03/17 09:00 Blood Pressure 107/68 12/03/17 06:00 O2 Sat by Pulse Oximetry (%) 96 12/03/17 09:00 Constitutional: Yes: Well Nourished, No Distress, Calm Eyes: Yes: Conjunctiva Clear, EOM Intact. No: Sclera Icterus HENT: Yes: Atraumatic, Normocephalic Neck: Yes: Supple, Trachea Midline Gastrointestinal: Yes: Soft, Hernia (small reducible umbilical), Tenderness (RUQ /lateral, minimal epigastric, + Boyce's, no guarding, focal tenderness to percussion RUQ only, no rachel rebound). No: Distention ...Rectal Exam: Yes: Deferred Extremities: No: Cool, Cyanosis Integumentary: Yes: Tattoos. No: Jaundice, Rash Neurological: Yes: Alert, Oriented Labs: CBC, BMP 12/03/17 05:50 12/03/17 05:50 INR, PTT INR 1.05 (0.82-1.09) 12/03/17 05:50 CMP Sodium 139 mmol/L (136-145) 12/03/17 05:50 Potassium 4.1 mmol/L (3.5-5.1) 12/03/17 05:50 Chloride 100 mmol/L (98-107) 12/03/17 05:50 Carbon Dioxide 30 mmol/L (21-32) 12/03/17 05:50 Anion Gap 9 (8-16) 12/03/17 05:50 BUN 4 mg/dL (7-18) L 12/03/17 05:50 Creatinine 0.6 mg/dL (0.7-1.3) L 12/03/17 05:50 Creat Clearance w eGFR > 60 (>60) 12/03/17 05:50 POC Glucometer 110 UNITS (80-120) 12/03/17 05:24 Random Glucose 82 mg/dL (74-106) 12/03/17 05:50 Lactic Acid 0.9 mmol/L (0.0-2.0) 12/02/17 18:00 Calcium 8.2 mg/dL (8.5-10.1) L 12/03/17 05:50 Ferritin 88.4 ng/ml (16.4-293.9) 12/03/17 05:50 Total Bilirubin 0.4 mg/dL (0.2-1.0) 12/03/17 05:50 AST 17 U/L (15-37) 12/03/17 05:50 ALT 17 U/L (12-78) 12/03/17 05:50 Alkaline Phosphatase 70 U/L (45-117) 12/03/17 05:50 Total Protein 5.7 g/dl (6.4-8.2) L 12/03/17 05:50 Albumin 2.2 g/dl (3.4-5.0) L 12/03/17 05:50 Total Amylase 22 U/L (25-125) L 12/02/17 13:15 Lipase 57 U/L (73-393) L 12/03/17 05:50 anemic, but otherwise normal, stable labs - ....Imaging Cat Scan: Image Reviewed (CT and US images reviewed in person with Dr. Fernandez of radiology - tiny locule of air adjacent to small possible pool of oral contrast in posterior duodenum suggests higher likelihood of sealed perforated duodenal ulcer with secondary gallbladder inflammation, less likely primary gb pathology) Ultrasound: Image Reviewed Problem List - Problems (1) Duodenal ulcer with perforation but without obstruction Assessment/Plan: agree with GI consultation but would defer endoscopy at this time will treat as perforated, sealed duodenal ulcer with secondary inflammation/ fluid around gallbladder - gb not primary problem start Protonix with bolus and drip add Diflucan to Zosyn (ID following) would keep NPO INCLUDING MEDS at this point use only IV meds as needed for now no indication for surgical intervention at this time will follow with you discussed with Dotty Kumar Code(s): K26.5 - CHRONIC OR UNSPECIFIED DUODENAL ULCER WITH PERFORATION (2) Epigastric abdominal pain Code(s): R10.13 - EPIGASTRIC PAIN (3) RUQ pain Code(s): R10.11 - RIGHT UPPER QUADRANT PAIN (4) Tobacco dependence due to cigarettes Assessment/Plan: nicotine patch - counseled regarding cessation Code(s): F17.210 - NICOTINE DEPENDENCE, CIGARETTES, UNCOMPLICATED (5) Nausea & vomiting Assessment/Plan: zofran prn Code(s): R11.2 - NAUSEA WITH VOMITING, UNSPECIFIED Qualifiers: Vomiting type: unspecified Vomiting Intractability: non-intractable Qualified Code(s): R11.2 - Nausea with vomiting, unspecified (6) Anxiety Assessment/Plan: ativan prn may consider benadryl prn for sleep Code(s): F41.9 - ANXIETY DISORDER, UNSPECIFIED
--- NOTE | 2017-12-03 11:36 | PN ---
Progress Note, Physician Chief Complaint: acute acalculous cholecystitis with associated intestinal inflammation - Current Medication List Current Medications: Active Medications Acetaminophen (Ofirmev Injection -) 1,000 mg IVPB Q6H PRN PRN Reason: pain level 4-10 Albuterol Sulfate (Ventolin 0.5% -) 1 amp NEB Q4H PRN PRN Reason: SHORT OF BREATH/WHEEZING Heparin Sodium (Porcine) (Heparin -) 5,000 unit SQ TID ALEXIA Last Admin: 12/03/17 05:22 Dose: 5,000 unit Lactated Ringer's (Lactated Ringers Solution) 1,000 ml in 1,000 mls @ 125 mls/ hr IV ASDIR ALEXIA Last Admin: 12/03/17 06:42 Dose: 125 mls/hr Piperacillin Sod/Tazobactam (Sod 4.5 gm/ Dextrose) 100 mls @ 200 mls/hr IVPB Q8H-IV ALEXIA; Protocol Last Admin: 12/03/17 09:21 Dose: 200 mls/hr Pantoprazole Sodium 160 mg/ (Sodium Chloride) 290 mls @ 14.5 mls/hr IVPB Q20H ALEXIA Fluconazole (Diflucan 200 Mg/D5w Premixed Ivpb -) 100 mls @ 100 mls/hr IVPB ONCE ONE Stop: 12/03/17 12:14 Fluconazole (Diflucan 100 Mg/D5w Premixed Ivpb -) 50 mls @ 50 mls/hr IVPB DAILY ALEXIA Morphine Sulfate (Morphine Sulfate) 2 mg IVPUSH Q4H PRN PRN Reason: PAIN LEVEL 7 - 10 Last Admin: 12/03/17 09:36 Dose: 2 mg Nicotine (Nicoderm Patch -) 7 mg TD DAILY [facility] Last Admin: 12/03/17 09:22 Dose: 7 mg Ondansetron HCl (Zofran Injection) 4 mg IVPUSH Q4H PRN PRN Reason: NAUSEA AND/OR VOMITING Last Admin: 12/03/17 09:21 Dose: 4 mg - Objective Vital Signs: Vital Signs Temperature 97.9 F 12/03/17 10:00 Pulse Rate 84 12/03/17 10:00 Respiratory Rate 18 12/03/17 10:00 Blood Pressure 135/77 12/03/17 10:00 O2 Sat by Pulse Oximetry (%) 96 12/03/17 09:00 Constitutional: Yes: Well Nourished, No Distress, Calm Cardiovascular: Yes: Regular Rate and Rhythm Respiratory: Yes: Regular Gastrointestinal: Yes: Soft, Hyperactive Bowel Sounds, Tenderness (geeralized) Musculoskeletal: Yes: WNL Extremities: Yes: WNL Edema: No Peripheral Pulses WNL: Yes Neurological: Yes: Alert, Oriented Psychiatric: Yes: Alert, Oriented Labs: CBC, BMP 12/03/17 05:50 12/03/17 05:50 INR, PTT INR 1.05 (0.82-1.09) 12/03/17 05:50 Problem List - Problems (1) Anxiety Assessment/Plan: -PO meds changed to Lorazepam 1 mg TID PRN IVP Code(s): F41.9 - ANXIETY DISORDER, UNSPECIFIED (2) Duodenal ulcer with perforation but without obstruction Assessment/Plan: -Protonix drip -Surgery consult appreciated -Going to [place] today -IVF -Morphine 1 mg IVP Q4H PRN for pain scale of 4-6 -Morphine 2 mg IVP Q4H PRN for pain scale of 7-10 -Strict NPO Code(s): K26.5 - CHRONIC OR UNSPECIFIED DUODENAL ULCER WITH PERFORATION (3) Tobacco dependence due to cigarettes Assessment/Plan: -Nicotene patch Code(s): F17.210 - NICOTINE DEPENDENCE, CIGARETTES, UNCOMPLICATED (4) HTN (hypertension) Assessment/Plan: takes nifidepine at alok -Metoprolol 5 mg IVP Q4H PRN for SBP > 160 mm Hg -NPO Code(s): I10 - ESSENTIAL (PRIMARY) HYPERTENSION Assessment/Plan see problem list
[2017-12-03] MEDS ORDERED: MORPHINE SULFATE 2 MG/ML VIAL IVPUSH PRN (12:29)
--- NOTE | 2017-12-03 13:08 | EKG ---
Test Reason : Blood Pressure : / mmHG Vent. Rate : 080 BPM Atrial Rate : 080 BPM P-R Int : 132 ms QRS Dur : 078 ms QT Int : 378 ms P-R-T Axes : 083 053 065 degrees QTc Int : 435 ms NORMAL SINUS RHYTHM POSSIBLE INFERIOR INFARCT , AGE UNDETERMINED ABNORMAL ECG NO PREVIOUS ECGS AVAILABLE Confirmed by MD CLARA, KAI ([id number]) on 12/03/2017 1:07:55 PM Referred By: ARLEN CARPENTER Confirmed By:KAI ELIZABETH MD
[2017-12-03] MEDS ORDERED: METOPROLOL TARTRATE 5 MG/5 ML VIAL IVPUSH PRN (13:13)
[2017-12-03] MEDS: NICOTINE 14 MG/24 HOURS TOPICAL PATCH TD SCH (13:49)
[2017-12-03] MEDS: LORazepam 2 MG/ML SDV VIAL IVPUSH PRN ×2 (13:49→22:59)
--- NOTE | 2017-12-03 16:36 | CON.GI ---
Consult Consult Specialty:: GI consult: Dr. Gamino who resumes care 12/04 Referred by:: Hospitalist Service Reason for Consultation:: Abdominal pain - History of Present Illness Chief Complaint: Abdominal pain History of Present Illness: 52M seen at [facility] ER yesterday for evaluation of persistent RUQ and epigastric pain. Mr. Ballard states that the pain began gradually 2 weeks ago along with N/V and diarrhea. He states that he noticed black diarrhea during this initial episode of pain for 2 days. He denies similar episodes in the past and described diminished appetite. he took advil every other day when thae pain began with no relief. He had a CT scan of the abdomen and pelvis with PO and IV contrast that revealed changes consistent with possible acalculous chlecystitis. abdominal US confirmed pericholecystic fluid and thickened GB wall. He was transferred to [facility] for further evaluation / possible surgery. he was evaluated by Dr. Gavin of surgery. While it was initially though that Mr. Ballard had cholecustitis, Dr. Gavin Reviewed both the CT and US images with Dr. Fernandez of radiology. It was felt that a tiny locule of air was adjacent to small possible pool of oral contrast in posterior duodenum raising suspicion suggestive of sealed perforated duodenal ulcer with secondary gallbladder inflammation and less likely primary cholecystitis. He was started on PPI drip, is on broad spectrum abx and diflucan. Overall pain has improved. He has never had an upper endoscopy or colonoscopy. There is no family history of colorectal cancer or other GI malignancy. - History Source History Provided By: Patient, Family Member (Mother present at bedside) - Past Medical History Cardio/Vascular: Yes: HTN Pulmonary: Yes: COPD (? of COPD) Psych: Yes: Anxiety, Depression Musculoskeletal: Yes: Osteoarthritis (knee), Other (chronic shoulder problems, h /o ankle injuries) - Past Surgical History Past Surgical History: No: Colonoscopy (never) Additional Surgical History: RLQ surgery as 3yo for "blockage" - unclear if had appendectomy, was benign; L rotator cuff repair, (needs right done) - Alcohol/Substance Use Hx Alcohol Use: Yes (heavy drinker for 8 yrs, quit 2 yrs ago) History of Substance Use: reports: Cocaine (in the 1980s, intranasal - not since ), Prescription (vicodin 5/325 at least daily to tid for shoulder/knee pain ( mostly at night)) - Smoking History Smoking history: Current every day smoker Have you smoked in the past 12 months: Yes Aproximately how many cigarettes per day: 20 (1ppd x 35 yrs, less in last 2 wks) - Social History ADL: Independent Occupation: Retired: Worked for [employer] Place of : [facility] History of Recent Travel: No Home Medications - Allergies Allergies/Adverse Reactions: Allergies Allergy/AdvReac Type Severity Reaction Status Date / Time No Known Allergies Allergy Verified 12/02/17 12:32 - Home Medications Home Medications: Ambulatory Orders Escitalopram Oxalate [Lexapro -] 50 mg PO DAILY 12/02/17 Hydrocodone/Acetaminophen [Vicodin 5-300 mg Tablet] 1 each PO QID PRN 12/02/17 LORazepam [Ativan] 1 mg PO TID 12/02/17 Nifedipine [Nifedipine ER] 60 mg PO DAILY 12/02/17 Family Disease History - Family Disease History Family Disease History: Other: Father ( age 64: EtOH cirrhosis), Mother ( Alive: healthy), Brother (3, 1 : EtOH cirrhosis), Sister (1, healthy), Son ( 1, healthy), Daughter (1, healthy) Other Family History: No family history of colorectal cancer or other GI malignancy Review of Systems - Review of Systems Constitutional: reports: Loss of Appetite. denies: Fever, Unintentional Wgt. Loss Cardiovascular: denies: Chest Pain Respiratory: denies: SOB Gastrointestinal: reports: Abdominal Pain, Diarrhea (resolved), Melena (? of melena 2 weeks ago). denies: Constipation Physical Exam-GI Vital Signs: Vital Signs Temperature 98.8 F 12/03/17 15:11 Pulse Rate 75 12/03/17 15:11 Respiratory Rate 18 12/03/17 15:11 Blood Pressure 141/83 12/03/17 15:11 O2 Sat by Pulse Oximetry (%) 96 12/03/17 12:28 Constitutional: Yes: Calm Eyes: No: Sclera Icterus Cardiovascular: Yes: Regular Rate and Rhythm Respiratory: Yes: CTA Bilaterally Gastrointestinal Inspection: Yes: Scars (+ RLQ scar). No: Distention ...Auscultate: Yes: Normoactive Bowel Sounds ...Palpate: Yes: Soft, Tenderness (Mild ttp epigastrium). No: Guarding, Hepatomegaly, Splenomegaly, Tenderness, Rebound ...Percussion: No: Tympanitic ...Rectal Exam: Yes: Other (No external lesions, no masses, scant brown stool in rectal vault, guaiac negative) Edema: No (No LE edema) Neurological: Yes: Alert, Oriented Labs: CBC, BMP 12/03/17 05:50 12/03/17 05:50 INR, PTT INR 1.05 (0.82-1.09) 12/03/17 05:50 Imaging - Results Cat Scan: Report Reviewed, Image Reviewed Problem List - Problems (1) Duodenal ulcer with perforation but without obstruction Assessment/Plan: With suspected secondary gallbladder inflammation Clinically improved without peritoneal signs On PPI infusion No guidelines for PPI drip for treatment of perforations. PPI drips are continued for 72 hours with gastric / proximal duodenal ulcer bleeds pre procedure or after treatment of bleeding. Timing of repeat imaging study per surgery Will need eventual follow-up EGD and colonoscopy when cleared Further evaluation of anemia Odd location for an h. pylori associated ulcer but if serologies + can offer Rx Needs smoking cessation Dr. Gamino resumes care 12/04/17 Code(s): K26.5 - CHRONIC OR UNSPECIFIED DUODENAL ULCER WITH PERFORATION
[2017-12-04] MEDS: MORPHINE SULFATE 2 MG/ML VIAL IVPUSH PRN ×3 (00:54→13:12)
[2017-12-04] MEDS: PIPERACILLIN/TAZOB 4.5 GM 4.5 GM in DEXTROSE 5%-WATER 100 ML IVPB SCH ×3 (01:18→17:18)
[2017-12-04] MEDS: LACTATED RINGERS SOLUTION 1,000 ML/1,000 ML INFUS.BAG IV SCH ×3 (02:14→18:43)
[2017-12-04] MEDS: HEPARIN NA (PORCINE) 5,000 UNITS/ML 1ML VIAL SQ SCH ×3 (05:44→21:52)
[2017-12-04] MEDS: LORazepam 2 MG/ML SDV VIAL IVPUSH PRN ×3 (07:35→21:53)
[2017-12-04 08:07] LABS: BASO % 0.6 % (0-2.0); EOS % 2.8 % (0-4.5); HEMATOCRIT 27.1 % (35.4-49); HEMOGLOBIN 8.9 GM/dL (11.7-16.9); LYMPH % 29.5 % (8-40); MCH 30.4 pg (25.7-33.7); MCHC 32.7 g/dl (32.0-35.9); MEAN PLT VOLUME 7.3 fl (7.5-11.1); NEUT % 55.1 % (42.8-82.8); PLATELET COUNT 549 K/MM3 (134-434); RBC 2.91 M/mm3 (4.00-5.60); RDW 15.3 % (11.9-15.9); WHITE BLOOD COUNT 6.4 K/mm3 (4.0-10.0)
[2017-12-04 08:32] LABS: ALBUMIN 2.5 g/dl (3.4-5.0); BLOOD UREA NITROGEN 6 mg/dL (7-18); CHLORIDE 99 mmol/L (98-107); GLUCOSE,RANDOM 71 mg/dL (74-106); POTASSIUM 4.1 mmol/L (3.5-5.1); SODIUM 139 mmol/L (136-145)
[2017-12-04 08:36] LABS: ALK PHOS 68 U/L (45-117); ANION GAP 11 (8-16); BILIRUBIN,TOTAL 0.3 mg/dL (0.2-1.0); CALCIUM 8.5 mg/dL (8.5-10.1); CO2 29 mmol/L (21-32); CREATININE 0.7 mg/dL (0.7-1.3); SGOT/AST 13 U/L (15-37); SGPT/ALT 16 U/L (12-78); TOT PROT 6.2 g/dl (6.4-8.2)
--- NOTE | 2017-12-04 09:47 | PN ---
Progress Note, Physician Chief Complaint: abdominal pain History of Present Illness: 52yo HTN, anxiety/depression, shoulder and knee problems, presented to [facility] with epigastric and RUQ pain began about [address] and US images reviewed in person with Dr. Fernandez of radiology - tiny locule of air adjacent to small possible pool of oral contrast in posterior duodenum suggests higher likelihood of sealed perforated duodenal ulcer with secondary gallbladder inflammation, less likely primary gb pathology, no complaints this morning. - Current Medication List Current Medications: Active Medications Acetaminophen (Ofirmev Injection -) 1,000 mg IVPB Q6H PRN PRN Reason: pain level 4-10 Albuterol Sulfate (Ventolin 0.5% -) 1 amp NEB Q4H PRN PRN Reason: SHORT OF BREATH/WHEEZING Diphenhydramine HCl (Benadryl Injection -) 25 mg IVPUSH HS PRN PRN Reason: INSOMNIA Last Admin: 12/03/17 22:57 Dose: 25 mg Heparin Sodium (Porcine) (Heparin -) 5,000 unit SQ TID ALEXIA Last Admin: 12/04/17 05:44 Dose: 5,000 unit Lactated Ringer's (Lactated Ringers Solution) 1,000 ml in 1,000 mls @ 125 mls/ hr IV ASDIR ALEXIA Last Admin: 12/04/17 02:14 Dose: 125 mls/hr Piperacillin Sod/Tazobactam (Sod 4.5 gm/ Dextrose) 100 mls @ 200 mls/hr IVPB Q8H-IV ALEXIA; Protocol Last Admin: 12/04/17 01:18 Dose: 200 mls/hr Fluconazole (Diflucan 100 Mg/D5w Premixed Ivpb -) 50 mls @ 50 mls/hr IVPB DAILY ALEXIA Pantoprazole Sodium 160 mg/ (Sodium Chloride) 290 mls @ 14.5 mls/hr IVPB Q20H ALEXIA Lorazepam (Ativan Injection -) 1 mg IVPUSH TID PRN PRN Reason: ANXIETY Last Admin: 12/04/17 07:35 Dose: 1 mg Metoprolol Tartrate (Lopressor Injection -) 5 mg IVPUSH Q4H PRN PRN Reason: HYPERTENSION Morphine Sulfate (Morphine Sulfate) 2 mg IVPUSH Q4H PRN PRN Reason: PAIN LEVEL 7 - 10 Last Admin: 12/04/17 07:36 Dose: 2 mg Morphine Sulfate (Morphine Sulfate) 1 mg IVPUSH Q4H PRN PRN Reason: PAIN LEVEL 4 - 6 Nicotine (Nicoderm Patch -) 14 mg TD DAILY [facility] Last Admin: 12/03/17 13:49 Dose: 14 mg Ondansetron HCl (Zofran Injection) 4 mg IVPUSH Q4H PRN PRN Reason: NAUSEA AND/OR VOMITING Last Admin: 12/03/17 13:58 Dose: 4 mg - Objective Vital Signs: Vital Signs Temperature 97.3 F L 12/04/17 06:00 Pulse Rate 79 12/04/17 06:00 Respiratory Rate 18 12/04/17 06:00 Blood Pressure 146/89 12/04/17 06:00 O2 Sat by Pulse Oximetry (%) 96 12/03/17 21:00 Vital Signs Period Temp Pulse Resp BP Sys/Linn Pulse Ox Last 24 Hr 97.3 F-98.8 F 75-84 18-20 128-146/77-89 96-96 Intake & Output 12/03/17 12/04/17 12/04/17 23:59 07:59 15:59 Intake Total 1550 Balance 1550 Intake: IV 1450 LACTATED RINGERS SOLUTION 1450 1,000 ml In 1,000 ml @ 125 mls/hr IV ASDIR [facility] Rx#:[id number] IVPB 100 Other: Voiding Method Toilet Toilet # Unmeasured Voids Void 1 1 Bowel Movement No Constitutional: Yes: Well Nourished, No Distress, Calm Eyes: Yes: Conjunctiva Clear, EOM Intact HENT: Yes: Atraumatic, Normocephalic Neck: Yes: Supple, Trachea Midline Cardiovascular: Yes: Regular Rate and Rhythm, S1, S2 Respiratory: Yes: Regular, CTA Bilaterally Gastrointestinal: Yes: Normal Bowel Sounds, Soft, Vomiting. No: Distention, Tenderness, Tenderness, Epigastrium, Tenderness, Rebound Genitourinary: No: CVA Tenderness - Left, CVA Tenderness - Right Musculoskeletal: No: Muscle Pain, Muscle Weakness Extremities: No: Cool, Cyanosis Edema: No Peripheral Pulses WNL: Yes Peripheral Pulses: Left Doralis Pedis: 2+, Right Dorsalis Pedis: 2+ Integumentary: No: Jaundice Neurological: Yes: Alert, Oriented Psychiatric: Yes: Alert, Oriented Labs: CBC, BMP 12/04/17 06:20 12/04/17 06:20 INR, PTT INR 1.05 (0.82-1.09) 12/03/17 05:50 Problem List - Problems (1) Duodenal ulcer with perforation but without obstruction Assessment/Plan: 46 yo male MMP including a sealed duodenal perforation will treat as perforated , sealed duodenal ulcer with secondary inflammation/fluid around gallbladder - gb not primary problem. no indication for surgical intervention at this time. strict NPO continue Protonix drip consider adding Diflucan to Zosyn (ID following) Covering for Dr. Gavin Code(s): K26.5 - CHRONIC OR UNSPECIFIED DUODENAL ULCER WITH PERFORATION (2) Anxiety Code(s): F41.9 - ANXIETY DISORDER, UNSPECIFIED (3) Epigastric abdominal pain Code(s): R10.13 - EPIGASTRIC PAIN (4) HTN (hypertension) Code(s): I10 - ESSENTIAL (PRIMARY) HYPERTENSION (5) Tobacco dependence due to cigarettes Code(s): F17.210 - NICOTINE DEPENDENCE, CIGARETTES, UNCOMPLICATED
[2017-12-04] MEDS ORDERED: DEXTROSE 5%-WATER 100 ML IVPB ONE ×2 (09:55→17:15)
[2017-12-04] MEDS ORDERED: PIPERACILLIN/TAZOBACTAM 4.5 GM VIAL IVPB ONE ×2 (09:55→17:15)
[2017-12-04] MEDS: PANTOPRAZOLE SODIUM 160 MG in SODIUM CHLORIDE 290 ML IVPB SCH ×2 (10:00→17:49)
[2017-12-04] MEDS: NICOTINE 14 MG/24 HOURS TOPICAL PATCH TD SCH (10:00)
[2017-12-04 10:28] LABS: SERUM IRON SATURATION 8 % (15-55); TOTAL IRON BINDING CAPACITY 213 ug/dL (250-450); UIBC 196 ug/dL (111-343)
[2017-12-04] MEDS: FLUCONAZOLE 100 MG/D5W 50 ML IVPB SCH (10:35)
--- NOTE | 2017-12-04 11:55 | PN ---
Progress Note, Physician - Current Medication List Current Medications: Active Medications Acetaminophen (Ofirmev Injection -) 1,000 mg IVPB Q6H PRN PRN Reason: pain level 4-10 Albuterol Sulfate (Ventolin 0.5% -) 1 amp NEB Q4H PRN PRN Reason: SHORT OF BREATH/WHEEZING Diphenhydramine HCl (Benadryl Injection -) 25 mg IVPUSH HS PRN PRN Reason: INSOMNIA Last Admin: 12/03/17 22:57 Dose: 25 mg Heparin Sodium (Porcine) (Heparin -) 5,000 unit SQ TID ALEXIA Last Admin: 12/04/17 05:44 Dose: 5,000 unit Lactated Ringer's (Lactated Ringers Solution) 1,000 ml in 1,000 mls @ 125 mls/ hr IV ASDIR ALEXIA Last Admin: 12/04/17 02:14 Dose: 125 mls/hr Piperacillin Sod/Tazobactam (Sod 4.5 gm/ Dextrose) 100 mls @ 200 mls/hr IVPB Q8H-IV ALEXIA; Protocol Last Admin: 12/04/17 10:00 Dose: 200 mls/hr Fluconazole (Diflucan 100 Mg/D5w Premixed Ivpb -) 50 mls @ 50 mls/hr IVPB DAILY [facility]LEX[facility] Last Admin: 12/04/17 10:35 Dose: 50 mls/hr Pantoprazole Sodium 160 mg/ (Sodium Chloride) 290 mls @ 14.5 mls/hr IVPB Q20H ALEXIA Last Admin: 12/04/17 10:00 Dose: Not Given Lorazepam (Ativan Injection -) 1 mg IVPUSH TID PRN PRN Reason: ANXIETY Last Admin: 12/04/17 07:35 Dose: 1 mg Metoprolol Tartrate (Lopressor Injection -) 5 mg IVPUSH Q4H PRN PRN Reason: HYPERTENSION Morphine Sulfate (Morphine Sulfate) 2 mg IVPUSH Q4H PRN PRN Reason: PAIN LEVEL 7 - 10 Last Admin: 12/04/17 07:36 Dose: 2 mg Morphine Sulfate (Morphine Sulfate) 1 mg IVPUSH Q4H PRN PRN Reason: PAIN LEVEL 4 - 6 Nicotine (Nicoderm Patch -) 14 mg TD DAILY ALEX[facility] Last Admin: 12/04/17 10:00 Dose: 14 mg Ondansetron HCl (Zofran Injection) 4 mg IVPUSH Q4H PRN PRN Reason: NAUSEA AND/OR VOMITING Last Admin: 12/03/17 13:58 Dose: 4 mg - Objective Vital Signs: Vital Signs Temperature 97.3 F L 12/04/17 06:00 Pulse Rate 79 12/04/17 06:00 Respiratory Rate 18 12/04/17 06:00 Blood Pressure 146/89 12/04/17 06:00 O2 Sat by Pulse Oximetry (%) 96 12/03/17 21:00 Cardiovascular: Yes: Regular Rate and Rhythm Respiratory: Yes: Regular, CTA Bilaterally Gastrointestinal: Yes: Normal Bowel Sounds, Soft, Tenderness (minimal--no guarding) Labs: CBC, BMP 12/04/17 06:20 12/04/17 06:20 INR, PTT INR 1.05 (0.82-1.09) 12/03/17 05:50 Problem List - Problems (1) Anxiety Assessment/Plan: -PO meds changed to Lorazepam 1 mg TID PRN IVP Code(s): F41.9 - ANXIETY DISORDER, UNSPECIFIED (2) Duodenal ulcer with perforation but without obstruction Assessment/Plan: -Protonix drip -Surgery consult appreciated -Going to [place] today -IVF -Morphine 1 mg IVP Q4H PRN for pain scale of 4-6 -Morphine 2 mg IVP Q4H PRN for pain scale of 7-10 -Strict NPO Code(s): K26.5 - CHRONIC OR UNSPECIFIED DUODENAL ULCER WITH PERFORATION (3) HTN (hypertension) Assessment/Plan: -takes nifidepine at home -Metoprolol 5 mg IVP Q4H PRN for SBP > 160 mm Hg -NPO Code(s): I10 - ESSENTIAL (PRIMARY) HYPERTENSION (4) Tobacco dependence due to cigarettes Assessment/Plan: -Nicotene patch Code(s): F17.210 - NICOTINE DEPENDENCE, CIGARETTES, UNCOMPLICATED
--- NOTE | 2017-12-04 13:33 | PN ---
Progress Note, Physician History of Present Illness: patient says he has abd pain but much less no nausea comfortable - Current Medication List Current Medications: Active Medications Acetaminophen (Ofirmev Injection -) 1,000 mg IVPB Q6H PRN PRN Reason: pain level 4-10 Albuterol Sulfate (Ventolin 0.5% -) 1 amp NEB Q4H PRN PRN Reason: SHORT OF BREATH/WHEEZING Diphenhydramine HCl (Benadryl Injection -) 25 mg IVPUSH HS PRN PRN Reason: INSOMNIA Last Admin: 12/03/17 22:57 Dose: 25 mg Heparin Sodium (Porcine) (Heparin -) 5,000 unit SQ TID ALEXIA Last Admin: 12/04/17 13:12 Dose: 5,000 unit Lactated Ringer's (Lactated Ringers Solution) 1,000 ml in 1,000 mls @ 125 mls/ hr IV ASDIR ALEXIA Last Admin: 12/04/17 02:14 Dose: 125 mls/hr Piperacillin Sod/Tazobactam (Sod 4.5 gm/ Dextrose) 100 mls @ 200 mls/hr IVPB Q8H-IV ALEXIA; Protocol Last Admin: 12/04/17 10:00 Dose: 200 mls/hr Fluconazole (Diflucan 100 Mg/D5w Premixed Ivpb -) 50 mls @ 50 mls/hr IVPB DAILY ALEXIA Last Admin: 12/04/17 10:35 Dose: 50 mls/hr Pantoprazole Sodium 160 mg/ (Sodium Chloride) 290 mls @ 14.5 mls/hr IVPB Q20H ALEXIA Last Admin: 12/04/17 10:00 Dose: Not Given Lorazepam (Ativan Injection -) 1 mg IVPUSH TID PRN PRN Reason: ANXIETY Last Admin: 12/04/17 07:35 Dose: 1 mg Metoprolol Tartrate (Lopressor Injection -) 5 mg IVPUSH Q4H PRN PRN Reason: HYPERTENSION Morphine Sulfate (Morphine Sulfate) 2 mg IVPUSH Q4H PRN PRN Reason: PAIN LEVEL 7 - 10 Last Admin: 12/04/17 13:12 Dose: 2 mg Morphine Sulfate (Morphine Sulfate) 1 mg IVPUSH Q4H PRN PRN Reason: PAIN LEVEL 4 - 6 Nicotine (Nicoderm Patch -) 14 mg TD DAILY [facility] Last Admin: 12/04/17 10:00 Dose: 14 mg Ondansetron HCl (Zofran Injection) 4 mg IVPUSH Q4H PRN PRN Reason: NAUSEA AND/OR VOMITING Last Admin: 12/03/17 13:58 Dose: 4 mg - Objective Vital Signs: Vital Signs Temperature 98.4 F 12/04/17 10:00 Pulse Rate 70 12/04/17 10:00 Respiratory Rate 20 12/04/17 10:00 Blood Pressure 147/90 12/04/17 10:00 O2 Sat by Pulse Oximetry (%) 97 12/04/17 09:00 Constitutional: Yes: No Distress, Calm Cardiovascular: Yes: Regular Rate and Rhythm Respiratory: Yes: Regular, CTA Bilaterally Gastrointestinal: Yes: Normal Bowel Sounds, Soft Musculoskeletal: Yes: WNL Extremities: Yes: WNL Neurological: Yes: Alert, Oriented Psychiatric: Yes: Alert, Oriented Labs: CBC, BMP 12/04/17 06:20 12/04/17 06:20 INR, PTT INR 1.05 (0.82-1.09) 12/03/17 05:50 Assessment/Plan after looking at the imaging and discussing the case the thought process is that there is a sealed deuodenal perf and gall bladder pathology is secondary Problem List - Problems (1) Duodenal ulcer with perforation but without obstruction Code(s): K26.5 - CHRONIC OR UNSPECIFIED DUODENAL ULCER WITH PERFORATION (2) Anxiety Code(s): F41.9 - ANXIETY DISORDER, UNSPECIFIED (3) Epigastric abdominal pain Code(s): R10.13 - EPIGASTRIC PAIN (4) HTN (hypertension) Code(s): I10 - ESSENTIAL (PRIMARY) HYPERTENSION (5) Tobacco dependence due to cigarettes Code(s): F17.210 - NICOTINE DEPENDENCE, CIGARETTES, UNCOMPLICATED plan continue current mgmt continue abx hydration rest as per the team/surgery
--- NOTE | 2017-12-04 15:55 | PN ---
Progress Note, Physician History of Present Illness: NAD, pain-free. No events. Appears comfortable. - Current Medication List Current Medications: Active Medications Acetaminophen (Ofirmev Injection -) 1,000 mg IVPB Q6H PRN PRN Reason: pain level 4-10 Albuterol Sulfate (Ventolin 0.5% -) 1 amp NEB Q4H PRN PRN Reason: SHORT OF BREATH/WHEEZING Diphenhydramine HCl (Benadryl Injection -) 25 mg IVPUSH HS PRN PRN Reason: INSOMNIA Last Admin: 12/03/17 22:57 Dose: 25 mg Heparin Sodium (Porcine) (Heparin -) 5,000 unit SQ TID ALEXIA Last Admin: 12/04/17 13:12 Dose: 5,000 unit Lactated Ringer's (Lactated Ringers Solution) 1,000 ml in 1,000 mls @ 125 mls/ hr IV ASDIR ALEXIA Last Admin: 12/04/17 02:14 Dose: 125 mls/hr Piperacillin Sod/Tazobactam (Sod 4.5 gm/ Dextrose) 100 mls @ 200 mls/hr IVPB Q8H-IV ALEXIA; Protocol Last Admin: 12/04/17 10:00 Dose: 200 mls/hr Fluconazole (Diflucan 100 Mg/D5w Premixed Ivpb -) 50 mls @ 50 mls/hr IVPB DAILY ALEX[facility] Last Admin: 12/04/17 10:35 Dose: 50 mls/hr Pantoprazole Sodium 160 mg/ (Sodium Chloride) 290 mls @ 14.5 mls/hr IVPB Q20H ALEXIA Last Admin: 12/04/17 10:00 Dose: Not Given Lorazepam (Ativan Injection -) 1 mg IVPUSH TID PRN PRN Reason: ANXIETY Last Admin: 12/04/17 14:30 Dose: 1 mg Metoprolol Tartrate (Lopressor Injection -) 5 mg IVPUSH Q4H PRN PRN Reason: HYPERTENSION Morphine Sulfate (Morphine Sulfate) 2 mg IVPUSH Q4H PRN PRN Reason: PAIN LEVEL 7 - 10 Last Admin: 12/04/17 13:12 Dose: 2 mg Morphine Sulfate (Morphine Sulfate) 1 mg IVPUSH Q4H PRN PRN Reason: PAIN LEVEL 4 - 6 Nicotine (Nicoderm Patch -) 14 mg TD DAILY [facility] Last Admin: 12/04/17 10:00 Dose: 14 mg Ondansetron HCl (Zofran Injection) 4 mg IVPUSH Q4H PRN PRN Reason: NAUSEA AND/OR VOMITING Last Admin: 12/03/17 13:58 Dose: 4 mg - Objective Vital Signs: Vital Signs Temperature 98.5 F 12/04/17 14:52 Pulse Rate 79 12/04/17 14:52 Respiratory Rate 18 12/04/17 14:52 Blood Pressure 135/94 12/04/17 14:52 O2 Sat by Pulse Oximetry (%) 97 12/04/17 09:00 Constitutional: Yes: Well Nourished, No Distress, Calm Eyes: Yes: Conjunctiva Clear HENT: Yes: Atraumatic Neck: Yes: Supple Cardiovascular: Yes: Regular Rate and Rhythm Respiratory: Yes: Regular Gastrointestinal: Yes: Normal Bowel Sounds, Soft. No: Distention, Melena, Rectal Bleeding, Tenderness, Tenderness, Epigastrium, Tenderness, Rebound, Vomiting Neurological: Yes: Alert, Oriented Labs: CBC, BMP 12/04/17 06:20 12/04/17 06:20 INR, PTT INR 1.05 (0.82-1.09) 12/03/17 05:50 Laboratory Last Values WBC 6.4 K/mm3 (4.0-10.0) 12/04/17 06:20 RBC 2.91 M/mm3 (4.00-5.60) L 12/04/17 06:20 Hgb 8.9 GM/dL (11.7-16.9) L 12/04/17 06:20 Hct 27.1 % (35.4-49) L 12/04/17 06:20 MCV 93.0 fl (80-96) 12/04/17 06:20 MCH 30.4 pg (25.7-33.7) 12/04/17 06:20 MCHC 32.7 g/dl (32.0-35.9) 12/04/17 06:20 RDW 15.3 % (11.9-15.9) 12/04/17 06:20 Plt Count 549 K/MM3 (134-434) H D 12/04/17 06:20 MPV 7.3 fl (7.5-11.1) L 12/04/17 06:20 Absolute Neuts (auto) 3.5 # 12/04/17 06:20 Neutrophils % 55.1 % (42.8-82.8) D 12/04/17 06:20 Lymphocytes % 29.5 % (8-40) D 12/04/17 06:20 Monocytes % 12.0 % (3.8-10.2) H 12/04/17 06:20 Eosinophils % 2.8 % (0-4.5) 12/04/17 06:20 Basophils % 0.6 % (0-2.0) 12/04/17 06:20 Nucleated RBC % 0 % (0-0) 12/04/17 06:20 Platelet Estimate Increased 12/02/17 13:15 Platelet Comment Few large platelets 12/02/17 13:15 Retic Count 2.96 % (0.5-1.5) H 12/03/17 05:50 PT with INR 11.90 SEC (9.7-13.0) 12/03/17 05:50 INR 1.05 (0.82-1.09) 12/03/17 05:50 PTT (Actin FS) 36.0 SECONDS (25.2-36.5) 12/03/17 05:50 Sodium 139 mmol/L (136-145) 12/04/17 06:20 Potassium 4.1 mmol/L (3.5-5.1) 12/04/17 06:20 Chloride 99 mmol/L (98-107) 12/04/17 06:20 Carbon Dioxide 29 mmol/L (21-32) 12/04/17 06:20 Anion Gap 11 (8-16) 12/04/17 06:20 BUN 6 mg/dL (7-18) L 12/04/17 06:20 Creatinine 0.7 mg/dL (0.7-1.3) 12/04/17 06:20 Creat Clearance w eGFR > 60 (>60) 12/04/17 06:20 POC Glucometer 110 UNITS (80-120) 12/03/17 05:24 Random Glucose 71 mg/dL (74-106) L 12/04/17 06:20 Lactic Acid 0.9 mmol/L (0.0-2.0) 12/02/17 18:00 Calcium 8.5 mg/dL (8.5-10.1) 12/04/17 06:20 Iron 17 ug/dL (38-169) L 12/03/17 05:50 TIBC 213 ug/dL (250-450) L 12/03/17 05:50 Iron Saturation 8 % (15-55) L 12/03/17 05:50 Ferritin 88.4 ng/ml (16.4-293.9) 12/03/17 05:50 Total Bilirubin 0.3 mg/dL (0.2-1.0) 12/04/17 06:20 AST 13 U/L (15-37) L D 12/04/17 06:20 ALT 16 U/L (12-78) 12/04/17 06:20 Alkaline Phosphatase 68 U/L (45-117) 12/04/17 06:20 Total Protein 6.2 g/dl (6.4-8.2) L 12/04/17 06:20 Albumin 2.5 g/dl (3.4-5.0) L 12/04/17 06:20 Total Amylase 22 U/L (25-125) L 12/02/17 13:15 Lipase 57 U/L (73-393) L 12/03/17 05:50 Urine Color Yellow 12/02/17 13:15 Urine Appearance Clear 12/02/17 13:15 Urine pH 6.0 (4.5-8) 12/02/17 13:15 Ur Specific [place] 1.015 (1.005-1.025) 12/02/17 13:15 Urine Protein 1+ (NEGATIVE) H 12/02/17 13:15 Urine Glucose (UA) Trace (NEGATIVE) 12/02/17 13:15 Urine Ketones Trace (NEGATIVE) 12/02/17 13:15 Urine Blood Negative (NEGATIVE) 12/02/17 13:15 Urine Nitrite Positive (NEGATIVE) 12/02/17 13:15 Urine Bilirubin 1+ (NEGATIVE) H 12/02/17 13:15 Urine Urobilinogen 1.0 (0.2-1.0) 12/02/17 13:15 Ur Leukocyte Esterase Negative (NEGATIVE) 12/02/17 13:15 Urine RBC 0-3 /hpf (0-3) 12/02/17 13:15 Urine WBC 3-5 (0-2) 12/02/17 13:15 Ur Epithelial Cells 0-3 /HPF 12/02/17 13:15 Urine Bacteria Few /hpf (NEGATIVE) 12/02/17 13:15 Urine Mucus 2+ 12/02/17 13:15 Blood Type O POSITIVE 12/02/17 18:10 Antibody Screen Negative 12/02/17 18:00 Problem List - Problems (1) Duodenal ulcer with perforation but without obstruction Code(s): K26.5 - CHRONIC OR UNSPECIFIED DUODENAL ULCER WITH PERFORATION Assessment/Plan Non-surgical abdomen on exam. Comfortable. Pain-free. Continue the PPI, IVF and bowel rest. Add carafate. EGD in 2-3 weeks if continues to improve. Discussed with the patient.
[2017-12-04] MEDS ORDERED: PT OWN MED DRAWER 7, Y5N ONE (16:53)
[2017-12-04] MEDS: SUCRALFATE 1 GM/10 ML UNIT DOSE CUPS PO SCH ×2 (17:18→21:53)
[2017-12-05] MEDS: LACTATED RINGERS SOLUTION 1,000 ML/1,000 ML INFUS.BAG IV SCH ×2 (02:36→08:24)
[2017-12-05] MEDS: PIPERACILLIN/TAZOB 4.5 GM 4.5 GM in DEXTROSE 5%-WATER 100 ML IVPB SCH ×3 (02:57→18:08)
[2017-12-05] MEDS ORDERED: PIPERACILLIN/TAZOBACTAM 4.5 GM VIAL IVPB ONE ×3 (03:12→17:59)
[2017-12-05] MEDS ORDERED: DEXTROSE 5%-WATER 100 ML IVPB ONE ×3 (03:12→17:59)
[2017-12-05] MEDS: HEPARIN NA (PORCINE) 5,000 UNITS/ML 1ML VIAL SQ SCH ×3 (05:56→22:42)
[2017-12-05] MEDS: LORazepam 2 MG/ML SDV VIAL IVPUSH PRN (07:03)
--- NOTE | 2017-12-05 10:05 | PN ---
Progress Note, Physician History of Present Illness: Pt without pain or nausea. Has been ambulating. Feeling better. No overnight events. GI input noted from yesterday. - Current Medication List Current Medications: Active Medications Acetaminophen (Ofirmev Injection -) 1,000 mg IVPB Q6H PRN PRN Reason: pain level 4-10 Albuterol Sulfate (Ventolin 0.5% -) 1 amp NEB Q4H PRN PRN Reason: SHORT OF BREATH/WHEEZING Diphenhydramine HCl (Benadryl Injection -) 25 mg IVPUSH HS PRN PRN Reason: INSOMNIA Last Admin: 12/04/17 22:05 Dose: 25 mg Heparin Sodium (Porcine) (Heparin -) 5,000 unit SQ TID [facility] Last Admin: 12/05/17 05:56 Dose: 5,000 unit Lactated Ringer's (Lactated Ringers Solution) 1,000 ml in 1,000 mls @ 125 mls/ hr IV ASDIR [facility] Last Admin: 12/05/17 02:36 Dose: 125 mls/hr Piperacillin Sod/Tazobactam (Sod 4.5 gm/ Dextrose) 100 mls @ 200 mls/hr IVPB Q8H-IV [facility]; Protocol Last Admin: 12/05/17 02:57 Dose: 200 mls/hr Fluconazole (Diflucan 100 Mg/D5w Premixed Ivpb -) 50 mls @ 50 mls/hr IVPB DAILY [facility] Last Admin: 12/04/17 10:35 Dose: 50 mls/hr Pantoprazole Sodium 160 mg/ (Sodium Chloride) 290 mls @ 14.5 mls/hr IVPB Q20H [facility] Lorazepam (Ativan Injection -) 1 mg IVPUSH TID PRN PRN Reason: ANXIETY Last Admin: 12/05/17 07:03 Dose: 1 mg Metoprolol Tartrate (Lopressor Injection -) 5 mg IVPUSH Q4H PRN PRN Reason: HYPERTENSION Morphine Sulfate (Morphine Sulfate) 2 mg IVPUSH Q4H PRN PRN Reason: PAIN LEVEL 7 - 10 Last Admin: 12/04/17 13:12 Dose: 2 mg Morphine Sulfate (Morphine Sulfate) 1 mg IVPUSH Q4H PRN PRN Reason: PAIN LEVEL 4 - 6 Nicotine (Nicoderm Patch -) 14 mg TD DAILY [facility] Last Admin: 12/04/17 10:00 Dose: 14 mg Ondansetron HCl (Zofran Injection) 4 mg IVPUSH Q4H PRN PRN Reason: NAUSEA AND/OR VOMITING Last Admin: 12/03/17 13:58 Dose: 4 mg - Objective Vital Signs: Vital Signs Temperature 97.9 F 12/05/17 05:00 Pulse Rate 72 12/05/17 05:00 Respiratory Rate 18 12/05/17 05:00 Blood Pressure 155/95 12/05/17 05:00 O2 Sat by Pulse Oximetry (%) 97 12/04/17 21:00 Constitutional: Yes: Well Nourished, No Distress, Calm Eyes: Yes: Conjunctiva Clear, EOM Intact HENT: Yes: Atraumatic, Normocephalic Gastrointestinal: Yes: Soft. No: Distention, Tenderness, Tenderness, Epigastrium ...Rectal Exam: Yes: Deferred Extremities: No: Cool, Cyanosis Integumentary: No: Jaundice, Rash Neurological: Yes: Alert, Oriented Labs: CBC, BMP 12/04/17 06:20 12/04/17 06:20 - ....Imaging Other: Pending Problem List - Problems (1) Duodenal ulcer with perforation but without obstruction Assessment/Plan: treating for perforated, sealed duodenal ulcer with secondary inflammation/ fluid around gallbladder/in RUQ on Protonix drip until tomorrow Zosyn and Diflucan, ID following keep NPO INCLUDING MEDS until leak study done carafate d/c'd use only IV meds as needed for now will try to get gastrograffin UGI today to r/o leak if carafate is radiopaque with any residual, may need to wait until tomorrow Code(s): K26.5 - CHRONIC OR UNSPECIFIED DUODENAL ULCER WITH PERFORATION (2) Epigastric abdominal pain Assessment/Plan: resolved Code(s): R10.13 - EPIGASTRIC PAIN (3) RUQ pain Code(s): R10.11 - RIGHT UPPER QUADRANT PAIN (4) Tobacco dependence due to cigarettes Code(s): F17.210 - NICOTINE DEPENDENCE, CIGARETTES, UNCOMPLICATED (5) Nausea & vomiting Assessment/Plan: resolved Code(s): R11.2 - NAUSEA WITH VOMITING, UNSPECIFIED Qualifiers: Qualified Code(s): R11.2 - Nausea with vomiting, unspecified (6) Anxiety Code(s): F41.9 - ANXIETY DISORDER, UNSPECIFIED
--- NOTE | 2017-12-05 10:17 | PN ---
Progress Note, Physician Chief Complaint: acute acalculous cholecystitis with associated intestinal inflammation History of Present Illness: NAD No N/V no pain at this time, self ambulatory On strict NPO Seen by GI and Surgery Going for GI Gastrograffin - Current Medication List Current Medications: Active Medications Acetaminophen (Ofirmev Injection -) 1,000 mg IVPB Q6H PRN PRN Reason: pain level 4-10 Albuterol Sulfate (Ventolin 0.5% -) 1 amp NEB Q4H PRN PRN Reason: SHORT OF BREATH/WHEEZING Diphenhydramine HCl (Benadryl Injection -) 25 mg IVPUSH HS PRN PRN Reason: INSOMNIA Last Admin: 12/04/17 22:05 Dose: 25 mg Heparin Sodium (Porcine) (Heparin -) 5,000 unit SQ TID [facility] Last Admin: 12/05/17 05:56 Dose: 5,000 unit Piperacillin Sod/Tazobactam (Sod 4.5 gm/ Dextrose) 100 mls @ 200 mls/hr IVPB Q8H-IV [facility]; Protocol Last Admin: 12/05/17 02:57 Dose: 200 mls/hr Fluconazole (Diflucan 100 Mg/D5w Premixed Ivpb -) 50 mls @ 50 mls/hr IVPB DAILY [facility] Last Admin: 12/04/17 10:35 Dose: 50 mls/hr Pantoprazole Sodium 160 mg/ (Sodium Chloride) 290 mls @ 14.5 mls/hr IVPB Q20H [facility] Dextrose/Lactated Ringer's (D5-Lr -) 1,000 mls @ 100 mls/hr IV ASDIR [facility] Lorazepam (Ativan Injection -) 1 mg IVPUSH TID PRN PRN Reason: ANXIETY Last Admin: 12/05/17 07:03 Dose: 1 mg Metoprolol Tartrate (Lopressor Injection -) 5 mg IVPUSH Q4H PRN PRN Reason: HYPERTENSION Morphine Sulfate (Morphine Sulfate) 2 mg IVPUSH Q4H PRN PRN Reason: PAIN LEVEL 7 - 10 Last Admin: 12/04/17 13:12 Dose: 2 mg Morphine Sulfate (Morphine Sulfate) 1 mg IVPUSH Q4H PRN PRN Reason: PAIN LEVEL 4 - 6 Nicotine (Nicoderm Patch -) 14 mg TD DAILY [facility] Last Admin: 12/04/17 10:00 Dose: 14 mg Ondansetron HCl (Zofran Injection) 4 mg IVPUSH Q4H PRN PRN Reason: NAUSEA AND/OR VOMITING Last Admin: 12/03/17 13:58 Dose: 4 mg - Objective Vital Signs: Vital Signs Temperature 97.9 F 12/05/17 05:00 Pulse Rate 72 12/05/17 05:00 Respiratory Rate 18 12/05/17 05:00 Blood Pressure 155/95 12/05/17 05:00 O2 Sat by Pulse Oximetry (%) 97 12/04/17 21:00 Constitutional: Yes: Well Nourished, No Distress, Calm Cardiovascular: Yes: Regular Rate and Rhythm Respiratory: Yes: Regular Gastrointestinal: Yes: Normal Bowel Sounds, Soft Musculoskeletal: Yes: WNL Extremities: Yes: WNL Edema: No Peripheral Pulses WNL: Yes Neurological: Yes: Alert, Oriented Psychiatric: Yes: Alert, Oriented Labs: CBC, BMP 12/04/17 06:20 12/04/17 06:20 INR, PTT INR 1.05 (0.82-1.09) 12/03/17 05:50 Problem List - Problems (1) Anxiety Assessment/Plan: -PO meds changed to Lorazepam 1 mg TID PRN IVP Code(s): F41.9 - ANXIETY DISORDER, UNSPECIFIED (2) Duodenal ulcer with perforation but without obstruction Assessment/Plan: -Protonix drip -Surgery consult appreciated -IVF -IV Zosyn and Fluconazole -Morphine 1 mg IVP Q4H PRN for pain scale of 4-6 -Morphine 2 mg IVP Q4H PRN for pain scale of 7-10 -Strict NPO -GI gastrograffin study, hopefully today Code(s): K26.5 - CHRONIC OR UNSPECIFIED DUODENAL ULCER WITH PERFORATION (3) Tobacco dependence due to cigarettes Assessment/Plan: -Nicotene patch Code(s): F17.210 - NICOTINE DEPENDENCE, CIGARETTES, UNCOMPLICATED (4) HTN (hypertension) Assessment/Plan: takes nifidepine at alok -Metoprolol 5 mg IVP Q4H PRN for SBP > 160 mm Hg -NPO Code(s): I10 - ESSENTIAL (PRIMARY) HYPERTENSION Assessment/Plan see problem list
--- NOTE | 2017-12-05 10:30 | PN ---
Progress Note, Physician History of Present Illness: doing well no discomfort or abd pain plan is to do leak study - Current Medication List Current Medications: Active Medications Acetaminophen (Ofirmev Injection -) 1,000 mg IVPB Q6H PRN PRN Reason: pain level 4-10 Albuterol Sulfate (Ventolin 0.5% -) 1 amp NEB Q4H PRN PRN Reason: SHORT OF BREATH/WHEEZING Diphenhydramine HCl (Benadryl Injection -) 25 mg IVPUSH HS PRN PRN Reason: INSOMNIA Last Admin: 12/04/17 22:05 Dose: 25 mg Heparin Sodium (Porcine) (Heparin -) 5,000 unit SQ TID [facility] Last Admin: 12/05/17 05:56 Dose: 5,000 unit Piperacillin Sod/Tazobactam (Sod 4.5 gm/ Dextrose) 100 mls @ 200 mls/hr IVPB Q8H-IV [facility]; Protocol Last Admin: 12/05/17 02:57 Dose: 200 mls/hr Fluconazole (Diflucan 100 Mg/D5w Premixed Ivpb -) 50 mls @ 50 mls/hr IVPB DAILY [facility] Last Admin: 12/04/17 10:35 Dose: 50 mls/hr Pantoprazole Sodium 160 mg/ (Sodium Chloride) 290 mls @ 14.5 mls/hr IVPB Q20H [facility] Dextrose/Lactated Ringer's (D5-Lr -) 1,000 mls @ 100 mls/hr IV ASDIR [facility] Lorazepam (Ativan Injection -) 1 mg IVPUSH TID PRN PRN Reason: ANXIETY Last Admin: 12/05/17 07:03 Dose: 1 mg Metoprolol Tartrate (Lopressor Injection -) 5 mg IVPUSH Q4H PRN PRN Reason: HYPERTENSION Morphine Sulfate (Morphine Sulfate) 2 mg IVPUSH Q4H PRN PRN Reason: PAIN LEVEL 7 - 10 Last Admin: 12/04/17 13:12 Dose: 2 mg Morphine Sulfate (Morphine Sulfate) 1 mg IVPUSH Q4H PRN PRN Reason: PAIN LEVEL 4 - 6 Nicotine (Nicoderm Patch -) 14 mg TD DAILY [facility] Last Admin: 12/04/17 10:00 Dose: 14 mg Ondansetron HCl (Zofran Injection) 4 mg IVPUSH Q4H PRN PRN Reason: NAUSEA AND/OR VOMITING Last Admin: 12/03/17 13:58 Dose: 4 mg - Objective Vital Signs: Vital Signs Temperature 97.9 F 12/05/17 05:00 Pulse Rate 72 12/05/17 05:00 Respiratory Rate 12/05/17 05:00 Blood Pressure 155/95 12/05/17 05:00 O2 Sat by Pulse Oximetry (%) 97 12/04/17 21:00 Constitutional: Yes: No Distress, Calm Cardiovascular: Yes: Regular Rate and Rhythm Respiratory: Yes: Regular, CTA Bilaterally Gastrointestinal: Yes: Normal Bowel Sounds, Soft Musculoskeletal: Yes: WNL Extremities: Yes: WNL Neurological: Yes: Alert, Oriented Psychiatric: Yes: Alert, Oriented Labs: CBC, BMP 12/04/17 06:20 12/04/17 06:20 INR, PTT INR 1.05 (0.82-1.09) 12/03/17 05:50 Assessment/Plan Problem List - Problems (1) Duodenal ulcer with perforation but without obstruction Code(s): K26.5 - CHRONIC OR UNSPECIFIED DUODENAL ULCER WITH PERFORATION (2) Epigastric abdominal pain Code(s): R10.13 - EPIGASTRIC PAIN (3) RUQ pain Code(s): R10.11 - RIGHT UPPER QUADRANT PAIN (4) Tobacco dependence due to cigarettes Code(s): F17.210 - NICOTINE DEPENDENCE, CIGARETTES, UNCOMPLICATED (5) Nausea & vomiting Code(s): R11.2 - NAUSEA WITH VOMITING, UNSPECIFIED Qualifiers: Qualified Code(s): R11.2 - Nausea with vomiting, unspecified (6) Anxiety Code(s): F41.9 - ANXIETY DISORDER, UNSPECIFIED plan continue current abx continue monitoring study to evaluate the leak rest continue current mgmt
[2017-12-05] MEDS ORDERED: PT OWN MED DRAWER 7, Y5N ONE (10:32)
[2017-12-05] MEDS: DEXTROSE 5%-LACTATED RINGERS 1,000 ML IV SCH (10:44)
[2017-12-05] MEDS: NICOTINE 14 MG/24 HOURS TOPICAL PATCH TD SCH (10:45)
[2017-12-05] MEDS: FLUCONAZOLE 100 MG/D5W 50 ML IVPB SCH (10:45)
[2017-12-05] MEDS: MORPHINE SULFATE 2 MG/ML VIAL IVPUSH PRN (13:59)
[2017-12-05] MEDS: PANTOPRAZOLE SODIUM 160 MG in SODIUM CHLORIDE 290 ML IVPB SCH (15:10)
[2017-12-05] MEDS ORDERED: LORazepam 1 MG TABLET PO PRN (17:33)
[2017-12-05] MEDS: SUCRALFATE 1 GM/10 ML UNIT DOSE CUPS PO SCH ×2 (18:08→22:41)
[2017-12-06] MEDS: DEXTROSE 5%-LACTATED RINGERS 1,000 ML IV SCH (00:05)
[2017-12-06] MEDS ORDERED: PIPERACILLIN/TAZOBACTAM 4.5 GM VIAL IVPB ONE ×2 (01:23→09:28)
[2017-12-06] MEDS ORDERED: DEXTROSE 5%-WATER 100 ML IVPB ONE ×2 (01:23→09:29)
[2017-12-06] MEDS: PIPERACILLIN/TAZOB 4.5 GM 4.5 GM in DEXTROSE 5%-WATER 100 ML IVPB SCH ×2 (01:49→10:47)
[2017-12-06] MEDS: HEPARIN NA (PORCINE) 5,000 UNITS/ML 1ML VIAL SQ SCH ×2 (06:08→21:17)
[2017-12-06] MEDS: FLUCONAZOLE 100 MG/D5W 50 ML IVPB SCH (09:33)
[2017-12-06] MEDS: NICOTINE 14 MG/24 HOURS TOPICAL PATCH TD SCH (09:33)
[2017-12-06] MEDS: SUCRALFATE 1 GM/10 ML UNIT DOSE CUPS PO SCH ×4 (09:33→21:17)
[2017-12-06] MEDS: NIFEdipine E.R 60 MG TABLET (UD) PO SCH (09:34)
--- NOTE | 2017-12-06 10:09 | PN ---
Progress Note, Physician History of Present Illness: patient doing well had a upper gi series no leak noted no nausea - Current Medication List Current Medications: Active Medications Acetaminophen (Ofirmev Injection -) 1,000 mg IVPB Q6H PRN PRN Reason: pain level 4-10 Albuterol Sulfate (Ventolin 0.5% -) 1 amp NEB Q4H PRN PRN Reason: SHORT OF BREATH/WHEEZING Diphenhydramine HCl (Benadryl Injection -) 25 mg IVPUSH HS PRN PRN Reason: INSOMNIA Last Admin: 12/05/17 22:42 Dose: 25 mg Heparin Sodium (Porcine) (Heparin -) 5,000 unit SQ TID [facility] Last Admin: 12/06/17 06:08 Dose: 5,000 unit Piperacillin Sod/Tazobactam (Sod 4.5 gm/ Dextrose) 100 mls @ 200 mls/hr IVPB Q8H-IV [facility]; Protocol Last Admin: 12/06/17 01:49 Dose: 200 mls/hr Fluconazole (Diflucan 100 Mg/D5w Premixed Ivpb -) 50 mls @ 50 mls/hr IVPB DAILY [facility] Last Admin: 12/06/17 09:33 Dose: 50 mls/hr Pantoprazole Sodium 160 mg/ (Sodium Chloride) 290 mls @ 14.5 mls/hr IVPB Q20H [facility] Last Admin: 12/05/17 15:10 Dose: 14.5 mls/hr Dextrose/Lactated Ringer's (D5-Lr -) 1,000 mls @ 100 mls/hr IV ASDIR [facility] Last Admin: 12/06/17 00:05 Dose: 100 mls/hr Lorazepam (Ativan -) 1 mg PO Q8H PRN PRN Reason: ANXIETY Last Admin: 12/05/17 22:42 Dose: 1 mg Metoprolol Tartrate (Lopressor Injection -) 5 mg IVPUSH Q4H PRN PRN Reason: HYPERTENSION Morphine Sulfate (Morphine Sulfate) 2 mg IVPUSH Q4H PRN PRN Reason: PAIN LEVEL 7 - 10 Last Admin: 12/05/17 13:59 Dose: 2 mg Morphine Sulfate (Morphine Sulfate) 1 mg IVPUSH Q4H PRN PRN Reason: PAIN LEVEL 4 - 6 Nicotine (Nicoderm Patch -) 14 mg TD DAILY [facility] Last Admin: 12/06/17 09:33 Dose: 14 mg Nifedipine (Procardia Xl -) 60 mg PO DAILY [facility] Last Admin: 12/06/17 09:34 Dose: 60 mg Ondansetron HCl (Zofran Injection) 4 mg IVPUSH Q4H PRN PRN Reason: NAUSEA AND/OR VOMITING Last Admin: 12/03/17 13:58 Dose: 4 mg Sucralfate (Carafate Oral Suspension -) 1 gm PO QID [facility] Last Admin: 12/06/17 09:33 Dose: 1 gm - Objective Vital Signs: Vital Signs Temperature 97.7 F 12/06/17 08:48 Pulse Rate 80 12/06/17 08:48 Respiratory Rate 20 12/06/17 08:48 Blood Pressure 140/95 12/06/17 08:48 O2 Sat by Pulse Oximetry (%) 99 12/05/17 21:00 Constitutional: Yes: No Distress, Calm HENT: Yes: Atraumatic, Normocephalic Neck: Yes: Supple, Trachea Midline Cardiovascular: Yes: Regular Rate and Rhythm Respiratory: Yes: Regular, CTA Bilaterally Gastrointestinal: Yes: Normal Bowel Sounds, Soft Musculoskeletal: Yes: WNL Extremities: Yes: WNL Neurological: Yes: Alert, Oriented Psychiatric: Yes: Alert, Oriented Labs: CBC, BMP 12/04/17 06:20 12/04/17 06:20 INR, PTT INR 1.05 (0.82-1.09) 12/03/17 05:50 - ....Imaging X-ray: Report Reviewed, Image Reviewed Assessment/Plan Problem List - Problems (1) Duodenal ulcer with perforation but without obstruction Code(s): K26.5 - CHRONIC OR UNSPECIFIED DUODENAL ULCER WITH PERFORATION (2) Epigastric abdominal pain Code(s): R10.13 - EPIGASTRIC PAIN (3) RUQ pain Code(s): R10.11 - RIGHT UPPER QUADRANT PAIN (4) Tobacco dependence due to cigarettes Code(s): F17.210 - NICOTINE DEPENDENCE, CIGARETTES, UNCOMPLICATED (5) Nausea & vomiting Code(s): R11.2 - NAUSEA WITH VOMITING, UNSPECIFIED Qualifiers: Qualified Code(s): R11.2 - Nausea with vomiting, unspecified (6) Anxiety Code(s): F41.9 - ANXIETY DISORDER, UNSPECIFIED plan noted patient has been started on liquids which he has tolerated plan will stop abx and monitor him close watch on the patient rest continue current mgmt advance slowly as per the team in regarding to diet will watch if the pain returns
[2017-12-06] MEDS: PANTOPRAZOLE SODIUM 160 MG in SODIUM CHLORIDE 290 ML IVPB SCH (10:50)
--- NOTE | 2017-12-06 11:09 | PN ---
Progress Note, Physician Chief Complaint: acute acalculous cholecystitis with associated intestinal inflammation History of Present Illness: NAD No N/V no pain at this time, self ambulatory Seen by GI and Surgery GI series shows no leak Tolerating clear liquids - Current Medication List Current Medications: Active Medications Acetaminophen (Ofirmev Injection -) 1,000 mg IVPB Q6H PRN PRN Reason: pain level 4-10 Albuterol Sulfate (Ventolin 0.5% -) 1 amp NEB Q4H PRN PRN Reason: SHORT OF BREATH/WHEEZING Diphenhydramine HCl (Benadryl Injection -) 25 mg IVPUSH HS PRN PRN Reason: INSOMNIA Last Admin: 12/05/17 22:42 Dose: 25 mg Heparin Sodium (Porcine) (Heparin -) 5,000 unit SQ TID [facility] Last Admin: 12/06/17 06:08 Dose: 5,000 unit Fluconazole (Diflucan 100 Mg/D5w Premixed Ivpb -) 50 mls @ 50 mls/hr IVPB DAILY [facility] Last Admin: 12/06/17 09:33 Dose: 50 mls/hr Pantoprazole Sodium 160 mg/ (Sodium Chloride) 290 mls @ 14.5 mls/hr IVPB Q20H [facility] Last Admin: 12/06/17 10:50 Dose: 14.5 mls/hr Dextrose/Lactated Ringer's (D5-Lr -) 1,000 mls @ 100 mls/hr IV ASDIR [facility] Last Admin: 12/06/17 00:05 Dose: 100 mls/hr Lorazepam (Ativan -) 1 mg PO Q8H PRN PRN Reason: ANXIETY Last Admin: 12/05/17 22:42 Dose: 1 mg Metoprolol Tartrate (Lopressor Injection -) 5 mg IVPUSH Q4H PRN PRN Reason: HYPERTENSION Morphine Sulfate (Morphine Sulfate) 2 mg IVPUSH Q4H PRN PRN Reason: PAIN LEVEL 7 - 10 Last Admin: 12/05/17 13:59 Dose: 2 mg Morphine Sulfate (Morphine Sulfate) 1 mg IVPUSH Q4H PRN PRN Reason: PAIN LEVEL 4 - 6 Nicotine (Nicoderm Patch -) 14 mg TD DAILY [facility] Last Admin: 12/06/17 09:33 Dose: 14 mg Nifedipine (Procardia Xl -) 60 mg PO DAILY [facility] Last Admin: 12/06/17 09:34 Dose: 60 mg Ondansetron HCl (Zofran Injection) 4 mg IVPUSH Q4H PRN PRN Reason: NAUSEA AND/OR VOMITING Last Admin: 12/03/17 13:58 Dose: 4 mg Sucralfate (Carafate Oral Suspension -) 1 gm PO QID [facility] Last Admin: 12/06/17 09:33 Dose: 1 gm - Objective Vital Signs: Vital Signs Temperature 97.7 F 12/06/17 08:48 Pulse Rate 80 12/06/17 08:48 Respiratory Rate 20 12/06/17 08:48 Blood Pressure 140/95 12/06/17 08:48 O2 Sat by Pulse Oximetry (%) 99 12/05/17 21:00 Constitutional: Yes: Well Nourished, No Distress, Calm Cardiovascular: Yes: Regular Rate and Rhythm Respiratory: Yes: Regular Gastrointestinal: Yes: Normal Bowel Sounds, Soft Musculoskeletal: Yes: WNL Extremities: Yes: WNL Edema: No Peripheral Pulses WNL: Yes Neurological: Yes: Alert, Oriented Psychiatric: Yes: Alert, Oriented Labs: CBC, BMP 12/04/17 06:20 12/04/17 06:20 INR, PTT INR 1.05 (0.82-1.09) 12/03/17 05:50 Problem List - Problems (1) Anxiety Assessment/Plan: -PO Lorazepam 1 mg TID PRN Code(s): F41.9 - ANXIETY DISORDER, UNSPECIFIED (2) Duodenal ulcer with perforation but without obstruction Assessment/Plan: -Protonix 40 mg po BID -Carafate 1 mg PO suspension Q6H -Surgery consult appreciated -D/C IVF, encourage PO fluids -IV Zosyn and Fluconazole discontinued -Oxycodone 5 mg Q6H PRN for pain 6-10 -Acetaminophen 650 mg Q6H PRN for pain of 1-5 -GI series negative for any leaks -advance diet to low fiber, low sodium Code(s): K26.5 - CHRONIC OR UNSPECIFIED DUODENAL ULCER WITH PERFORATION (3) Tobacco dependence due to cigarettes Assessment/Plan: -Nicotene patch Code(s): F17.210 - NICOTINE DEPENDENCE, CIGARETTES, UNCOMPLICATED (4) HTN (hypertension) Assessment/Plan: -Nifidepine re-initiated Code(s): I10 - ESSENTIAL (PRIMARY) HYPERTENSION Assessment/Plan see problem list Plan DC in AM if tolerated PO intake
[2017-12-06] MEDS ORDERED: diphenhydrAMINE HCL 25 MG CAPSULE (FP) PO PRN (13:14)
[2017-12-06] MEDS: oxyCODONE HCL 5 MG TABLET PO PRN ×2 (13:29→20:28)
[2017-12-06 14:47] VITALS: BMI 21.5
--- NOTE | 2017-12-06 17:21 | PN ---
Progress Note, Physician History of Present Illness: Pt without pain or nausea. Has been ambulating. Feeling better. No overnight events. Tolerated regular/low-fiber diet for lunch (ziti and broccoli). No complaints. - Current Medication List Current Medications: Active Medications Acetaminophen (Ofirmev Injection -) 1,000 mg IVPB Q6H PRN PRN Reason: pain level 4-10 Albuterol Sulfate (Ventolin 0.5% -) 1 amp NEB Q4H PRN PRN Reason: SHORT OF BREATH/WHEEZING Diphenhydramine HCl (Benadryl -) 25 mg PO Q6H PRN PRN Reason: FOR ITCHING Heparin Sodium (Porcine) (Heparin -) 5,000 unit SQ BID [facility] Lorazepam (Ativan -) 1 mg PO Q8H PRN PRN Reason: ANXIETY Last Admin: 12/05/17 22:42 Dose: 1 mg Nicotine (Nicoderm Patch -) 14 mg TD DAILY [facility] Last Admin: 12/06/17 09:33 Dose: 14 mg Nifedipine (Procardia Xl -) 60 mg PO DAILY [facility] Last Admin: 12/06/17 09:34 Dose: 60 mg Ondansetron HCl (Zofran Injection) 4 mg IVPUSH Q4H PRN PRN Reason: NAUSEA AND/OR VOMITING Last Admin: 12/03/17 13:58 Dose: 4 mg Oxycodone HCl (Roxicodone -) 5 mg PO Q6H PRN PRN Reason: PAIN LEVEL 6-10 Last Admin: 12/06/17 13:29 Dose: 5 mg Pantoprazole Sodium (Protonix -) 40 mg PO BID [facility] Sucralfate (Carafate Oral Suspension -) 1 gm PO QID [facility] Last Admin: 12/06/17 13:29 Dose: 1 gm - Objective Vital Signs: Vital Signs Temperature 98.7 F 12/06/17 16:03 Pulse Rate 78 12/06/17 16:03 Respiratory Rate 22 12/06/17 16:03 Blood Pressure 130/86 12/06/17 16:03 O2 Sat by Pulse Oximetry (%) 98 12/06/17 09:00 Constitutional: Yes: Well Nourished, No Distress, Calm Eyes: Yes: Conjunctiva Clear, EOM Intact HENT: Yes: Atraumatic, Normocephalic Gastrointestinal: Yes: Soft. No: Distention, Tenderness, Tenderness, Epigastrium Extremities: No: Cool, Cyanosis Integumentary: No: Jaundice, Rash Neurological: Yes: Alert, Oriented Labs: CBC, BMP 12/04/17 06:20 12/04/17 06:20 H. pylori IgM Ab negative, stool pending - ....Imaging Other: Report Reviewed, Image Reviewed (images personally reviewed - UGI from yesterday with no evidence of leak from stomach or duodenum) Problem List - Problems (1) Duodenal ulcer with perforation but without obstruction Assessment/Plan: treating for perforated, sealed duodenal ulcer with secondary inflammation/ fluid around gallbladder/in RUQ switched to Protonix po bid Zosyn and Diflucan d/c'd by ID gastrograffin UGI yesterday negative for leak tolerating diet, no pain or tenderness no nausea likely ok for d/c home after breakfast in am on low-residue diet to follow up with PMD (Dr. Lanza) and GI (Dr. Gamino) will need endoscopy and colonoscopy in about a month to continue PPI bid at home no need for surgical followup at this time Code(s): K26.5 - CHRONIC OR UNSPECIFIED DUODENAL ULCER WITH PERFORATION (2) Tobacco dependence due to cigarettes Assessment/Plan: doing well on 14mg nicotine patch may continue after discharge and will discuss cessation plan with PMD Code(s): F17.210 - NICOTINE DEPENDENCE, CIGARETTES, UNCOMPLICATED (3) Anxiety Code(s): F41.9 - ANXIETY DISORDER, UNSPECIFIED
[2017-12-06 17:33] VITALS: TEMP 98.6
[2017-12-06] MEDS: PANTOPRAZOLE 40 MG TABLET (FP) PO SCH (21:17)
--- NOTE | 2017-12-07 07:09 | DS ---
Physical Examination Vital Signs: Vital Signs Temperature 98.6 F 12/06/17 17:32 Pulse Rate 85 12/06/17 17:32 Respiratory Rate 20 12/06/17 17:32 Blood Pressure 113/64 12/06/17 17:32 O2 Sat by Pulse Oximetry (%) 98 12/06/17 21:00 Constitutional: Yes: Well Nourished, No Distress, Calm Cardiovascular: Yes: Regular Rate and Rhythm Respiratory: Yes: Regular Gastrointestinal: Yes: Normal Bowel Sounds, Soft Musculoskeletal: Yes: WNL Extremities: Yes: WNL Edema: No Peripheral Pulses WNL: Yes Neurological: Yes: Alert, Oriented Psychiatric: Yes: Alert, Oriented Labs: CBC, BMP 12/04/17 06:20 12/04/17 06:20 Discharge Summary Reason For Visit: ACUTE CLOISTITIS Current Active Problems Anxiety (Acute) Cholecystitis (Acute) Duodenal ulcer with perforation but without obstruction (Acute) Duodenitis (Acute) Epigastric abdominal pain (Acute) HTN (hypertension) (Acute) Nausea & vomiting (Acute) RUQ pain (Acute) Tobacco dependence due to cigarettes (Acute) Hospital Course: 52 y/o M w/ PMH of HTN, anxiety, and depression, p/w abdominal pain, vomiting, diarrhea. Patient states he has been ill for the past 2 weeks. Initially he noted nausea, vomiting, and diarrhea that he describes as "black sludge", he estimates one episode daily. He reports not taking anything for it and had decreased appetite, tolerated Gatorade and mild food. He also noted vomiting which was nonbloody, nonbilious, and has since resolved. He reports that 4 days into the vomiting and diarrhea he began to have abdominal pain along with dry heaving. Pain began in epigastrium and eventually migrated to the upper right side the abdomen, near the ribs, described as 9/10 and sharp. No radiation. Pain is always present but worsens intermittently. It improves with changes in position. No associated fevers, chills, SOB, CP, palpitations, dysuria, ill contacts, international travel. He's unsure if he's had undercooked meat or shellfish. No prior episodes like this. Condition: Stable - Instructions Referrals: Gigi Gamino MD [Staff Physician] - Noah Lanza MD, MD [Primary Care Provider] - Disposition: HOME - Home Medications Comprehensive Discharge Medication List: Ambulatory Orders Escitalopram Oxalate [Lexapro -] 50 mg PO DAILY 12/02/17 Hydrocodone/Acetaminophen [Vicodin 5-300 mg Tablet] 1 each PO QID PRN 12/02/17 LORazepam [Ativan] 1 mg PO TID 12/02/17 Nifedipine [Nifedipine ER] 60 mg PO DAILY 12/02/17
[2017-12-07] MEDS: PANTOPRAZOLE 40 MG TABLET (FP) PO SCH ×2 (08:34→11:40)
[2017-12-07] MEDS: SUCRALFATE 1 GM/10 ML UNIT DOSE CUPS PO SCH ×2 (08:35→11:40)
[2017-12-07] MEDS: NICOTINE 14 MG/24 HOURS TOPICAL PATCH TD SCH ×2 (08:35→11:40)
[2017-12-07 08:38] VITALS: BP 134/85; PULSE 100
[2017-12-07] MEDS: NIFEdipine E.R 60 MG TABLET (UD) PO SCH (11:40)
[2017-12-07] MEDS: HEPARIN NA (PORCINE) 5,000 UNITS/ML 1ML VIAL SQ SCH (11:40)
== END 2017-12-07 10:12 | disposition home or self-care (01) | DRG 444 ==
LOC: FER 12:23 → SUPCPDRO 12:23 → J8W 21:10
PROVIDERS: ADMIT Internal Medicine; ATTEND Family Medicine
DX: K81.0 Acute cholecystitis (principal); K26.5 Chronic or unspecified duodenal ulcer with perforation; K29.80 Duodenitis without bleeding; R19.7 Diarrhea, unspecified; R11.2 Nausea with vomiting, unspecified; R10.11 Right upper quadrant pain; F17.210 Nicotine dependence, cigarettes, uncomplicated; D47.3 Essential (hemorrhagic) thrombocythemia; D64.9 Anemia, unspecified; I10 Essential (primary) hypertension; F41.8 Other specified anxiety disorders; G47.00 Insomnia, unspecified; E88.09 Other disorders of plasma-protein metabolism, not elsewhere classified; J44.9 Chronic obstructive pulmonary disease, unspecified; M17.10 Unilateral primary osteoarthritis, unspecified knee
CPT/HCPCS: 36415; 71045-TC-FY; 74177-TC; 74247-TC-FY; 76705-TC; 80053; 81003; 81015; 82150; 82272; 82728; 82962; 83540; 83550; 83605; 83690; 85025; 85044; 85610; 85730; 86677; 86850; 86900; 86901; 87086; 87338; 93005; 99284-25; J1644; J7030

== ENCOUNTER 2018-02-13 12:27 | Day surgery (SDC) | payer BC ==
--- NOTE | 2018-02-13 12:54 | PROC ---
Endoscopy Procedure Endoscopy procedure completed. Please see scanned procedure report.
[2018-02-13 13:19] VITALS: BMI 21.5
[2018-02-13 14:43] VITALS: TEMP 98
[2018-02-13 15:30] VITALS: BP 147/92; PULSE 86
--- NOTE | 2018-02-17 17:18 | PATH ---
Surgical Pathology Report Patient Name: DEBI KHAN [facility]. Rec. #: [id number] /Age/Gender: 1965 (Age: 52) / M Account: [id number] Location: [facility]-ENDOSCOPY Taken: 02/13/2018 Received: 02/14/2018 Reported: 02/17/2018 Physicians: Gigi Gamino M.D. Specimen(s) Received A: BX 2ND PORTION DUODENUM B: BX JEJUNAL BULB C: BX 1ST PORTION OF JEJUNUM D: BX ANTRUM AND BODY E: BX GE JUNCTION Clinical History Epigastric pain, rule out ulcer Postoperative diagnosis: Jejunal ulcer, jejunitis, esophagitis, gastritis Final Diagnosis A. SECOND PORTION DUODENUM, BIOPSY: DUODENAL MUCOSA WITH MILD CHRONIC DUODENITIS. B. JEJUNAL BULB, BIOPSY: JEJUNAL MUCOSAL WITH ACTIVE CHRONIC JEJUNITIS. NO HISTOLOGIC EVIDENCE OF LYMPHOCYTIC ENTERITIS. C. FIRST PORTION OF JEJUNUM, BIOPSY: JEJUNAL MUCOSA SHOWING ACTIVE CHRONIC INFLAMMATION WITH ULCERATION, AND ACUTE INFLAMMATORY EXUDATE. D. ANTRUM AND BODY, BIOPSY: GASTRIC MUCOSA WITH REATIVE GASTOPATHY. IMMUNOSTAIN IS NEGATIVE FOR H. PYLORI ORGANISMS. E. GE JUNCTION, BIOPSY: ESOPHAGEAL MUCOSA WITH REFLUX ESOPHAGITIS. NEGATIVE FOR INTESTINAL METAPLASIA. NO HISTOLOGIC EVIDENCE OF EOSINOPHILIC ESOPHAGITIS. Electronically Signed Irena Marquez M.D. Gross Description A. Received in formalin, labeled "biopsy second portion of duodenum" are 2 hartman, irregular portions of soft tissue measuring 0.1 and 0.3 cm. in greatest dimension. The specimens are submitted in toto in one cassette. B. Received in formalin, labeled "biopsy jejunal bulb" are 4 hartman, irregular portions of soft tissue ranging from 0.1-0.3 cm. in greatest dimension. The specimens are submitted in toto in one cassette. C. Received in formalin, labeled "first portion of jejunum" are 4 hartman, irregular portions of soft tissue ranging from 0.1-0.3 cm. in greatest dimension. The specimens are submitted in toto in one cassette. D. Received in formalin, labeled "biopsy antrum and body" are 2 hartman, irregular portions of soft tissue averaging 0.4 cm. in greatest dimension. The specimens are submitted in toto in one cassette. E. Received in formalin, labeled "biopsy GE junction" are 2 hartman, irregular portions of soft tissue measuring 0.2 and 0.3 cm. in greatest dimension. The specimens are submitted in toto in one cassette. 02/14/201802/14/2018
== END 2018-02-13 15:30 | disposition home or self-care (01) ==
LOC: JASU-ENDO 12:27
PROVIDERS: ATTEND Internal Medicine Gastroenterology
PROC: 0DB68ZX Excision of Stomach, Via Natural or Artificial Opening Endoscopic, Diagnostic (ICD-10-PCS; 2018-02-13)
PROC: 0DB38ZX Excision of Lower Esophagus, Via Natural or Artificial Opening Endoscopic, Diagnostic (ICD-10-PCS; 2018-02-13)
PROC: 0DB98ZX Excision of Duodenum, Via Natural or Artificial Opening Endoscopic, Diagnostic (ICD-10-PCS; principal; 2018-02-13 12:45)
DX: K20.8 Other esophagitis (principal); K29.60 Other gastritis without bleeding; K29.80 Duodenitis without bleeding; K26.9 Duodenal ulcer, unspecified as acute or chronic, without hemorrhage or perforation; R10.13 Epigastric pain
CPT/HCPCS: 88305-TC; 88342-TC